=== PATIENT | female | born 1945 | race Caucasian/White ===

== ENCOUNTER 2018-12-26 14:36 | Inpatient (IN) | payer MEDICARE, MEDICAID ==
[~2018-12-26] VITALS: Ht 162.6 cm; Wt 81.8 kg
[2018-12-26] VITALS (10 sets, daily range): BP systolic 141–166; BP diastolic 76–129
--- OUTSIDE RECORDS SUMMARY | 2018-12-26 15:09 | XMS REPORT | Continuity of Care Document ---
Author Organization Unknown Address Unknown Allergies There is no data. Medications There is no data. Problems There is no data. Procedures There is no data. Results Test Result Range LIPID PANEL - 11/30/18 15:24 CHOLESTEROL, TOTAL 230 mg/dL <200 HDL CHOLESTEROL 43 mg/dL >50 TRIGLYCERIDES 196 mg/dL <150 LDL-CHOLESTEROL 153 mg/dL (calc) NRG CHOL/HDLC RATIO 5.3 (calc) <5.0 NON HDL CHOLESTEROL 187 mg/dL (calc) <130 CMP - 11/30/18 15:24 GLUCOSE 83 mg/dL 65-99 UREA NITROGEN (BUN) 13 mg/dL 7-25 CREATININE 1.23 mg/dL 0.60-0.93 eGFR NON-AFR. AUSTRALIAN 44 mL/min/1.73m2 > OR=60 eGFR 51 mL/min/1.73m2 > OR=60 BUN/CREATININE RATIO 11 (calc) 6-22 SODIUM 141 mmol/L 135-146 POTASSIUM 4.4 mmol/L 3.5-5.3 CHLORIDE 107 mmol/L 98-110 CARBON DIOXIDE 24 mmol/L 20-32 CALCIUM 9.9 mg/dL 8.6-10.4 PROTEIN, TOTAL 7.3 g/dL 6.1-8.1 ALBUMIN 4.1 g/dL 3.6-5.1 GLOBULIN 3.2 g/dL (calc) 1.9-3.7 ALBUMIN/GLOBULIN RATIO 1.3 (calc) 1.0-2.5 BILIRUBIN, TOTAL 0.7 mg/dL 0.2-1.2 ALKALINE PHOSPHATASE 113 U/L 33-130 AST 24 U/L 10-35 ALT 12 U/L 6-29 TSH - 11/30/18 15:24 TSH 14.20 mIU/L 0.40-4.50 Encounters ACCT No. Visit Date/Time Discharge Status Pt. Type Provider Facility Loc./Unit Complaint [id number] 11/30/2018 14:30:00 11/30/2018 23:59:59 CLS Outpatient MEHNAZ ROMAN LAC [facility] [id number] 11/30/2018 14:30:00 Document Registration
[2018-12-26] MEDS ORDERED: RT-ALBUTEROL/IPRATROPIUM 3 ML (DUONEB) VIAL INH ONE (15:15)
[2018-12-26 15:34] LABS: INR 1.3 (0.8-1.4)
[2018-12-26 15:38] LABS: BASOPHILS % (AUTO) 1 % (0-10); EOSINOPHILS % (AUTO) 2 % (0-10); HEMATOCRIT 40 % (35-52); HEMOGLOBIN 12.7 G/DL (11.5-16.0); LYMPHOCYTES % (AUTO) 24 % (12-44); MEAN CORPUSCULAR HEMOGLOBIN 29 PG (25-34); MEAN CORPUSCULAR HGB CONC 32 G/DL (32-36); MEAN CORPUSCULAR VOLUME 92 FL (80-99); MEAN PLATELET VOLUME 12.1 FL (7.4-10.4); MONOCYTES % (AUTO) 27 % (0-12); NEUTROPHILS # (AUTO) 2.3 X 10^3 (1.8-7.8); NEUTROPHILS % (AUTO) 46 % (42-75); PLATELET COUNT 151 10^3/uL (130-400); RED CELL DISTRIBUTION WIDTH 16.2 % (10.0-14.5)
[2018-12-26 15:39] LABS: ATYPICAL LYMPHOCYTES 1 %; BAND NEUTROPHILS 19 %; BASOPHILS # (AUTO) 0.1 10^3/uL (0.0-0.1); BASOPHILS % (MANUAL) 2 %; EOSINOPHILS # (AUTO) 0.1 10^3/uL (0.0-0.3); EOSINOPHILS % (MANUAL) 1 %; LYMPHOCYTES # (AUTO) 1.2 X 10^3 (1.0-4.0); LYMPHOCYTES % (MANUAL) 24 %; MONOCYTES # (AUTO) 1.3 X 10^3 (0.0-1.0); MONOCYTES % (MANUAL) 23 %; NEUTROPHILS % (MANUAL) 30 %
[2018-12-26 15:40] LABS: RBC MORPH NORMAL
[2018-12-26 15:48] LABS: CALCIUM 9.1 MG/DL (8.5-10.1); CREATININE SERUM 1.25 MG/DL (0.60-1.30); POTASSIUM 3.4 MMOL/L (3.6-5.0)
--- NOTE | 2018-12-26 16:03 | Diagnostic Imaging Report ---
INDICATION: Cough. EXAMINATION: PA and lateral views of the chest at 3:03 p.m. COMPARISON: There no prior studies available for comparison. FINDINGS: There is cardiomegaly. The central pulmonary vascularity is somewhat prominent but there is no evidence for overt failure. However, there is a vague area of slight increased density in the right lung base. This finding is suspicious for mild pneumonia/atelectasis. There is also blunting of the left costophrenic angle. This could be related to a small amount of fluid. The upper lungs are generally clear. The mediastinum is not widened. The osseous structures are intact. IMPRESSION: 1. There is a question of mild pneumonia/atelectasis involving the right lung base. There may also be a small amount of fluid in the left lung base. Clinical followup is recommended. 2. There is cardiomegaly. Dictated by: Dictated on workstation # [id number]
[2018-12-26] MEDS ORDERED: LEVOFLOXACIN 750 MG/150 ML IV 150 ML IV ONE (16:15)
[2018-12-26] MEDS ORDERED: methylPREDNISolone 40 MG/ML (Solu-MEDROL) VIAL IV ONE (16:15)
[2018-12-26] MEDS ORDERED: FUROSEMIDE 40 MG/4 ML INJ (LASIX) IVP ONE (16:15)
--- NOTE | 2018-12-26 16:35 | ED Respiratory ---
General Chief Complaint: Respiratory Problems Stated Complaint: SOB,COUGH Nursing Triage Note: PATIENT C/O SHORTNESS OF BREATH AND COUGH. STATES THAT IT STARTED SEVERAL WEEKS AGO BUT HAS GOTTEN PROGRESSIVELY WORSE OVER THE PAST 2 DAYS. Source: patient, family Exam Limitations: no limitations History of Present Illness Date Seen by Provider: December 26, 2018 Time Seen by Provider: 15:00 Initial Comments This is a 73 y/o f who presents to the ED for evaluation for progressive dyspnea over the past 2-3 days. Reports history of CHF, not on daily lasix but takes lasix 40mg QD PRN. Denies any significant LE edema. Does not weigh daily. Also reports history of COPD. Last steroid course approx 1 year ago. Poor compliance with home inhalers. + cough. no chest pain. no nausea, no vomiting. Activity severely limited 2/2 dyspnea. Allergies and Home Medications Allergies Coded Allergies: latex (Verified Allergy, Unknown, 12/26/18) Uncoded Allergies: SULFA (Allergy, Unknown, 12/26/18) Patient Home Medication List Home Medication List Reviewed: Yes Review of Systems Review of Systems Constitutional: chills; No fever; weakness EENTM: No ear pain, No throat pain, No throat swelling Respiratory: cough, dyspnea on exertion; No orthopnea; short of breath, wheezing Cardiovascular: No chest pain, No edema, No Hx of Intervention, No palpitations, No syncope Gastrointestinal: No abdominal pain, No nausea, No vomiting Genitourinary: No dysuria, No frequency Musculoskeletal: No back pain, No joint pain Skin: No pruritus, No rash All Other Systems Reviewed Negative Unless Noted: Yes Past Xllhrtd-Ykqgvl-Vwwvqz Hx Patient Social History Recent Foreign Travel: No Contact w/Someone Who Travel: No Recent Infectious Disease Expo: No Physical Abuse: No Sexual Abuse: No Mistreated: No Fear: No Physical Exam Vital Signs - First Documented 12/26/18 14:45 Temp 98.4 Pulse 92 Resp 28 B/P (MAP) 191/70 (110) Pulse Ox 96 O2 Delivery Room Air Capillary Refill : Less Than 3 Seconds Height: 5'4.00" Weight: 174lbs. oz. 78.221075dw; BMI Method:Stated General Appearance: WD/WN, mild distress Eyes: Bilateral Eye PERRL HEENT: PERRL/EOMI, pharynx normal Neck: full range of motion, normal inspection Respiratory: chest non-tender, decreased breath sounds, accessory muscle use, rales, rhonchi, wheezing Cardiovascular: no edema, no JVD, irregularly irregular Gastrointestinal: normal bowel sounds, non tender, soft Extremities: normal range of motion, no pedal edema Neurologic/Psychiatric: no motor/sensory deficits, alert, normal mood/affect, oriented x 3 Skin: normal color, warm/dry Progress/Results/Core Measures Suspected Sepsis Recent Fever Within 48 Hours: No Infection Criteria Present: Suspected New Infection New/Unexplained Altered Menta: No Sepsis Screen: Possible Sepsis Risk SIRS Temperature:98.4 Pulse: 92 Respiratory Rate: 28 Laboratory Tests 12/26/18 15:12: White Blood Count 5.0 Blood Pressure 191 /70 Mean: 110 Laboratory Tests 12/26/18 15:12: Creatinine 1.25, INR Comment 1.3, Platelet Count 151 Results/Orders Lab Results Laboratory Tests Test 12/26/18 15:12 Range/Units White Blood Count 5.0 4.3-11.0 10^3/uL Red Blood Count 4.32 L 4.35-5.85 10^6/uL Hemoglobin 12.7 11.5-16.0 G/DL Hematocrit 40 35-52 % Mean Corpuscular Volume 92 80-99 FL Mean Corpuscular Hemoglobin 29 25-34 PG Mean Corpuscular Hemoglobin Concent 32 32-36 G/DL Red Cell Distribution Width 16.2 H 10.0-14.5 % Platelet Count 151 130-400 10^3/uL Mean Platelet Volume 12.1 H 7.4-10.4 FL Neutrophils (%) (Auto) 46 42-75 % Lymphocytes (%) (Auto) 24 12-44 % Monocytes (%) (Auto) 27 H 0-12 % Eosinophils (%) (Auto) 2 0-10 % Basophils (%) (Auto) 1 0-10 % Neutrophils # (Auto) 2.3 1.8-7.8 X 10^3 Lymphocytes # (Auto) 1.2 1.0-4.0 X 10^3 Monocytes # (Auto) 1.3 H 0.0-1.0 X 10^3 Eosinophils # (Auto) 0.1 0.0-0.3 10^3/uL Basophils # (Auto) 0.1 0.0-0.1 10^3/uL Neutrophils % (Manual) 30 % Lymphocytes % (Manual) 24 % Monocytes % (Manual) 23 % Eosinophils % (Manual) 1 % Basophils % (Manual) 2 % Band Neutrophils 19 % Atypical Lymphocytes 1 % Blood Morphology Comment NORMAL Prothrombin Time 17.0 H 12.2-14.7 SEC INR Comment 1.3 0.8-1.4 Activated Partial Thromboplast Time 72 H 24-35 SEC Sodium Level 142 135-145 MMOL/L Potassium Level 3.4 L 3.6-5.0 MMOL/L Chloride Level 104 98-107 MMOL/L Carbon Dioxide Level 22 21-32 MMOL/L Anion Gap 16 H 5-14 MMOL/L Blood Urea Nitrogen 15 7-18 MG/DL Creatinine 1.25 0.60-1.30 MG/DL Estimat Glomerular Filtration Rate 42 BUN/Creatinine Ratio 12 Glucose Level 128 H 70-105 MG/DL Calcium Level 9.1 8.5-10.1 MG/DL Troponin T 6 <=10 NG/L Pro-B-Type Natriuretic Peptide 1323.0 H <75.0 PG/ML My Orders Orders - KEKE YOUNG DO Basic Metabolic Panel (12/26/18 14:55) Cbc And Manual Diff (12/26/18 14:55) Partial Thromboplastin Time (12/26/18 14:55) Probnp Fs (12/26/18 14:55) Protime With Inr (12/26/18 14:55) Troponin T (12/26/18 14:55) Chest Pa/Lat (2 View) (12/26/18 14:55) Ekg Tracing (12/26/18 14:55) Albuterol/Ipra Inhalation Soln (Duoneb I (12/26/18 15:15) Svn Small Volume Nebulizer (12/26/18 15:03) Furosemide Injection (Lasix Injection) (12/26/18 16:15) Methylprednisolone Sod Succ (Solu-Medrol (12/26/18 16:15) Levofloxacin 750 Mg/150 Ml Iv (Levaquin (12/26/18 16:15) Blood Culture (12/26/18 16:24) Blood Culture (12/26/18 16:25) Medications Given in ED Current Medications Medications Dose Ordered Sig/Pb Route Start Time Stop Time Status Last Admin Dose Admin Albuterol/ Ipratropium 3 ml ONCE ONCE INH 12/26/18 15:15 12/26/18 15:16 DC 12/26/18 15:34 3 ML Furosemide 40 mg ONCE ONCE IVP 12/26/18 16:15 12/26/18 16:16 DC 12/26/18 16:31 40 MG Methylprednisolone Sodium Succinate 60 mg ONCE ONCE IV 12/26/18 16:15 12/26/18 16:16 DC 12/26/18 16:31 60 MG Vital Signs/I&O 12/26/18 14:45 Temp 98.4 Pulse 92 Resp 28 B/P (MAP) 191/70 (110) Pulse Ox 96 O2 Delivery Room Air Capillary Refill : Less Than 3 Seconds Blood Pressure Mean: 110 Progress Note : Progress Note 1600: No significant improvement after breathing tx. EKG with no aute findings (a-fib which she has a history of) has remained Rate controlled. CXR with ?early infiltrate. Suspect multifactorial cause of dyspnea including COPD exacerbation, CHF exacerbation with pleural effusion on CXR and early infiltrate. Given lasix 40mg IV, Solu-medrol 60 and Levaquin in ED. Discussed with Dr. Suarez, admitting physician at [facility] who is agreeable to admission. Transportation being arranged. Diagnostic Imaging Comments CXR IMPRESSION: 1. There is a question of mild pneumonia/atelectasis involving the right lung base. There may also be a small amount of fluid in the left lung base. Clinical followup is recommended. 2. There is marked cardiomegaly. Consults Consults : Consulting Physician: A Departure Impression Primary Impression: Dyspnea Additional Impressions: CHF exacerbation COPD exacerbation Community acquired bacterial pneumonia Disposition: ADMITTED INPATIENT Condition: Improved Admissions Decision to Admit Reason: Admit from ER (General) Decision to Admit/Date: December 26, 2018 Time/Decision to Admit Time: 16:00 Departure-Patient Inst. Referrals: SELF,SADE PARKER (PCP/Family) Primary Care Physician KEKE YOUNG DO December 26, 2018 16:35
--- OUTSIDE RECORDS SUMMARY | 2018-12-26 16:58 | XMS REPORT | Continuity of Care Document ---
[...] 7-25 CREATININE 1.23 mg/dL 0.60-0.93 eGFR NON-AFR. [place] 44 mL/min/1.73m2 > OR=60 eGFR 51 mL/min/1.73m2 [...] Status Pt. Type Provider Facility Loc./Unit Complaint [id number] 11/30/2018 14:30:00 11/30/2018 23:59:59 CLS Outpatient ME[facility]NAZ ROMAN LAC [facility] [id number] 11/30/2018 14:30:00 Document Registration
[2018-12-26] MEDS ORDERED: RT-ALBUTEROL SULF 2.5 MG/3 ML PRE-MIX VIAL IH PRN (20:15)
--- NOTE | 2018-12-26 21:16 | NUR ---
E-ICU contacted r/t increased heart rate on exertion (130-160), and baseline heart rate of 110 when in bed.
--- NOTE | 2018-12-26 21:29 | NUR ---
E-HAND I BLOCKER contacted this RN, notified that physician recommended strict bedrest for pt and continued monitoring.
[2018-12-27] VITALS (24 sets, daily range): BP systolic 134–177; BP diastolic 59–104
--- NOTE | 2018-12-27 02:03 | NUR ---
Pt c/o headache, rating pain 7/10, requesting Tylenol, E-ICU contacted at this time, awaiting orders.
[2018-12-27] MEDS ORDERED: ACETAMINOPHEN 325 MG TABLET ONE (02:26)
[2018-12-27] MEDS ORDERED: ACETAMINOPHEN 325 MG TABLET PO PRN (02:30)
[2018-12-27 03:13] LABS: BASOPHILS % (AUTO) 1 % (0-10); EOSINOPHILS % (AUTO) 0 % (0-10); HEMATOCRIT 42 % (35-52); HEMOGLOBIN 13.8 G/DL (11.5-16.0); LYMPHOCYTES # (AUTO) 0.6 X 10^3 (1.0-4.0); LYMPHOCYTES % (AUTO) 17 % (12-44); MEAN CORPUSCULAR HEMOGLOBIN 29 PG (25-34); MEAN CORPUSCULAR HGB CONC 33 G/DL (32-36); MEAN CORPUSCULAR VOLUME 88 FL (80-99); MEAN PLATELET VOLUME 12.9 FL (7.4-10.4); MONOCYTES # (AUTO) 0.4 X 10^3 (0.0-1.0); MONOCYTES % (AUTO) 11 % (0-12); NEUTROPHILS # (AUTO) 2.6 X 10^3 (1.8-7.8); NEUTROPHILS % (AUTO) 72 % (42-75); PLATELET COUNT 165 10^3/uL (130-400); RED CELL DISTRIBUTION WIDTH 16.5 % (10.0-14.5); WHITE BLOOD COUNT 3.7 10^3/uL (4.3-11.0)
[2018-12-27 03:35] LABS: BILIRUBIN,TOTAL 0.6 MG/DL (0.1-1.0); CALCIUM 10.1 MG/DL (8.5-10.1); CREATININE SERUM 1.28 MG/DL (0.60-1.30); MAGNESIUM 1.7 MG/DL (1.8-2.4); PHOSPHORUS 2.4 MG/DL (2.3-4.7); POTASSIUM 3.4 MMOL/L (3.6-5.0); TOTAL PROTEIN 7.7 GM/DL (6.4-8.2)
[2018-12-27] MEDS: MAGNESIUM 1 GM/100 ML IVPB 100 ML IV SCH ×2 (05:30→06:33)
[2018-12-27] MEDS: POTASSIUM CL 10MEQ/50ML IVPB 50 ML IV SCH ×2 (05:30→06:32)
[2018-12-27] MEDS ORDERED: MAGNESIUM 1 GM/100 ML IVPB 100 ML IV SCH (06:00)
[2018-12-27] MEDS ORDERED: KCL 20 MEQ TAB (K-DUR) PO SCH (06:00)
[2018-12-27] MEDS ORDERED: POTASSIUM CL 10MEQ/50ML IVPB 50 ML IV SCH (06:00)
--- NOTE | 2018-12-27 06:00 | Pulmonary Consultation ---
History of Present Illness History of Present Illness Date of Consultation 12/27/18 05:55 Time Seen by Provider: 05:55 Date of Admission History of Present Illness 73yo with hx of CHF, Afib, and COPD (does not have home oxygen presented to ED secondary to worsening SOB, no CP, No coughing or fever. Pt has poor compliance wit home INH. Allergies and Home Medications Allergies Coded Allergies: latex (Verified Allergy, Unknown, 12/26/18) Uncoded Allergies: SULFA (Allergy, Unknown, 12/26/18) Past Hlgwcfo-Rhzxwl-Uolpoi Hx Patient Social History Alcohol Use: Denies Use Recreational Drug Use: No Smoking Status: Never a Smoker 2nd Hand Smoke Exposure: No Recent Foreign Travel: No Contact w/Someone Who Travel: No Recent Infectious Disease Expo: No Physical Abuse: No Sexual Abuse: No Mistreated: No Fear: No Immunizations Up To Date Tetanus Booster (TDap): Unknown Date of Pneumonia Vaccine: May 03, 2018 Past Medical History Section, Orthopedic Respiratory: Yes COPD Cardiac: Yes (CARDIOMEGALY) Atrial Fibrillation Genitourinary: No Gastrointestinal: No Musculoskeletal: No Endocrine: Yes Hypothyroidsim HEENT: No Cancer: No Psychosocial: No Integumentary: No Blood Disorders: No Sepsis Event Evaluation Height, Weight, BMI Height: 5'4.00" Weight: 171lbs. 2.0oz. 77.065774gz; 29.4 BMI Method:Stated Exam Exam Vital Signs Date Time Temp Pulse Resp B/P (MAP) Pulse Ox O2 Delivery O2 Flow Rate FiO2 12/27/18 05:00 105 25 168/96 (120) 96 Room Air 12/27/18 04:00 Room Air 12/27/18 04:00 100 20 139/71 (93) 93 Room Air 12/27/18 03:00 93 26 157/61 (93) 93 Room Air 12/27/18 02:00 101 22 155/78 (103) 95 Room Air 12/27/18 01:00 112 12/27/18 01:00 112 24 158/81 (106) 95 Room Air 12/27/18 00:43 97.2 12/27/18 00:00 Room Air 12/27/18 00:00 111 26 160/66 (97) 96 Room Air 12/26/18 23:00 109 23 152/89 (110) 95 Room Air 12/26/18 22:00 114 29 145/83 (103) 96 Room Air 12/26/18 21:00 121 27 152/82 (105) 96 Room Air 12/26/18 20:15 140 97 21 12/26/18 20:15 118 25 153/91 (111) 95 Room Air 12/26/18 20:00 96 Room Air 12/26/18 20:00 133 18 160/84 (109) 97 Room Air 12/26/18 19:45 131 16 144/82 (102) 95 Room Air 12/26/18 19:30 137 30 166/129 (141) 96 Room Air 12/26/18 19:15 117 26 158/96 (116) 95 Room Air 12/26/18 19:00 115 12/26/18 19:00 115 10 155/93 (113) 94 Room Air 12/26/18 19:00 Room Air 12/26/18 18:35 96.8 119 36 141/76 (97) 95 Room Air 12/26/18 17:50 99.1 97 24 195/62 (106) 94 Room Air 12/26/18 14:45 98.4 92 28 191/70 (110) 96 Room Air I & O 12/27/18 07:00 Intake Total 450 ml Output Total 2225 ml Balance -1775 ml Height & Weight Height: 5'4.00" Weight: 171lbs. 2.0oz. 77.877786tk; 29.4 BMI Method:Stated General Appearance: Anxious, Chronically ill, Mild Distress HEENT: PERRL/EOMI, Normal ENT Inspection, Pharynx Normal Neck: Full Range of Motion, Non Tender, Supple Respiratory: Chest Non Tender, No Accessory Muscle Use, No Respiratory Distress, Decreased Breath Sounds Cardiovascular: Regular Rate, Rhythm Capillary Refill: Less Than 3 Seconds Gastrointestinal: normal bowel sounds, non tender, soft Extremity: Normal Capillary Refill, Normal Inspection, No Pedal Edema Neurologic/Psychiatric: Alert, Oriented x3 Skin: Normal Color, Warm/Dry Lymphatic: No Adenopathy Results Lab Laboratory Tests 12/26/18 15:12 12/27/18 02:51 Assessment/Plan Assessment/Plan COPD AE -SVNs -Oxygen -Solumedrol CHFAE -Lasix -Check echo -Repeat BNP tachycardia with HTN -Start Lopressor PO Metabolic acidosis -Check LA and UA Atelectasis AGUTSO HERRERA DO December 27, 2018 06:00
[2018-12-27] MEDS: RT-ALBUTEROL/IPRATROPIUM 3 ML (DUONEB) VIAL INH SCH ×4 (06:26→20:03)
[2018-12-27 06:42] LABS: ABG BASE EXCESS -2.5 MMOL/L (-2.5-2.5); ABG OXYGEN SATURATION 95 % (94-100); ABG PCO2 30 MMHG (35-45); ABG PH 7.45 (7.37-7.43); ABG PO2 67 MMHG (79-93); ABG TCO2 22.1 MMOL/L (21.0-31.0)
[2018-12-27 06:43] LABS: ALLENS TEST POSITIVE; INSPIRED O2 N; PATIENT TEMP 96.4; VENTILATOR NO
[2018-12-27] MEDS ORDERED: KCL 20 MEQ TAB (K-DUR) PO ONE (08:00)
[2018-12-27] MEDS ORDERED: FUROSEMIDE 40 MG/4 ML INJ (LASIX) IVP ONE (08:00)
[2018-12-27 08:04] LABS: BILIRUBIN,URINE NEGATIVE (NEGATIVE); CLARITY,URINE SLIGHTLY CLOUDY; COLOR,URINE YELLOW; GLUCOSE, URINE (UA) NEGATIVE (NEGATIVE); KETONES,URINE NEGATIVE (NEGATIVE); LEUKOCYTE ESTERASE ,URINE 1+ (NEGATIVE); NITRITE,URINE NEGATIVE (NEGATIVE); PH,URINE 5 (5-9); PROTEIN,URINE 2+ (NEGATIVE); UROBILINOGEN,URINE NORMAL (NORMAL)
[2018-12-27 08:13] LABS: BACTERIA,URINE NEGATIVE /HPF
[2018-12-27] MEDS ORDERED: meTOprolol TARTRATE 25 MG (LOPRESSOR) TABLET PO SCH (09:00)
--- NOTE | 2018-12-27 09:20 | Diagnostic Imaging Report ---
Portable erect AP chest at 315 hours. INDICATION: Pneumonia. FINDINGS: The cardiomegaly noted on the prior exam of 12/26/2018 is again evident. However, both the heart and the central pulmonary vascularity are somewhat less striking than on the prior study. The previous exam did raise the question of mild pneumonia involving the right lung base. The right lung base also appears better aerated. There is still mild blunting of left costophrenic angle. The upper lungs are clear. The mediastinum is not widened. The osseous structures are intact. IMPRESSION: The appearance of the chest has improved as the heart has decreased in size and the central pulmonary vascularity does seem less prominent. The right lung base is also better aerated. Clinical followup is recommended. Dictated by: Dictated on workstation # [id number]
[2018-12-27] MEDS ORDERED: METO50TA15 PO (10:22)
[2018-12-27] MEDS ORDERED: LISI-552 PO (10:22)
[2018-12-27] MEDS ORDERED: LEVO100T7 PO (10:22)
[2018-12-27] MEDS ORDERED: DABI75CA3 PO (10:22)
[2018-12-27] MEDS ORDERED: meTOprolol TARTRATE 25 MG (LOPRESSOR) TABLET PO NR (11:15)
--- NOTE | 2018-12-27 11:30 | NUR ---
Levaquin Dosing: Utilizing patient adjusted body weight, Crcl calculated at 40ml/min. Recommended dose adjustment to 750mg every 48 hours. Initial dose administered 12/26 @ 1635. Subsequent dose will be timed for 12/28 @ 1700, 2nd IVPB dose, then will convert to oral Levaquin.
--- NOTE | 2018-12-27 11:53 | History & Physicial ([facility]) ---
HPI History of Present Illness: 73 yo female started to have cough a few days ago and was getting worse so she came to ER. She did not have known fever. She does report an "enlarged heart" and taking lasix as needed- she takes when she is getting swollen and reports this amounts to once every few months. She denies coronary artery disease, states she had rheumatic fever as a child. She has atrial fibrillation and is on Pradaxa and metoprolol. This morning she is feeling much better already. Source: patient Date seen by provider: December 27, 2018 Time Seen by Provider: 09:35 Attending Physician Xavier Munoz MD PCP Self,Rl PARKER Consult Date of Admission December 26, 2018 at 16:53 Home Medications Home Medications Reviewed patient Home Medication Reconciliation performed by pharmacy medication reconciliations diamond powder technician and/or nursing. Patients Allergies have been reviewed. Allergies Coded Allergies: latex (Verified Allergy, Unknown, 12/26/18) Uncoded Allergies: SULFA (Allergy, Unknown, 12/26/18) KAP-Bgmrgk-Fypdej Hx Patient Social History Alcohol Use: Denies Use Recreational Drug Use: No Smoking Status: Never a Smoker 2nd Hand Smoke Exposure: No Recent Foreign Travel: No Contact w/other who traveled: No Recent Infectious Disease Expo: No Immunizations Up To Date Tetanus Booster (TDap): Unknown Date of Pneumonia Vaccine: May 03, 2018 Past Medical History PMHx: Heart failure Atrial fibrillation Arthritis HTN COPD Hypothyroidism SurgHx: C section Left knee surgery Review of Systems ([facility]) Constitutional: No fever EENTM: no symptoms reported Respiratory: cough, short of breath Cardiovascular: No chest pain Gastrointestinal: No abdominal pain, No constipation, No diarrhea, No nausea, No vomiting Genitourinary: No dysuria Musculoskeletal: joint pain Skin: No rash Psychiatric/Neurological: No Symptoms Reported Reviewed Test Results Reviewed Test Results Lab Laboratory Tests Test 12/26/18 15:12 12/27/18 02:51 12/27/18 06:21 12/27/18 06:30 Range/Units White Blood Count 5.0 3.7 L 4.3-11.0 10^3/uL Red Blood Count 4.32 L 4.73 4.35-5.85 10^6/uL Hemoglobin 12.7 13.8 11.5-16.0 G/DL Hematocrit 40 42 35-52 % Mean Corpuscular Volume 92 88 80-99 FL Mean Corpuscular Hemoglobin 29 29 25-34 PG Mean Corpuscular Hemoglobin Concent 32 33 32-36 G/DL Red Cell Distribution Width 16.2 H 16.5 H 10.0-14.5 % Platelet Count 151 165 130-400 10^3/uL Mean Platelet Volume 12.1 H 12.9 H 7.4-10.4 FL Neutrophils (%) (Auto) 46 72 42-75 % Lymphocytes (%) (Auto) 24 17 12-44 % Monocytes (%) (Auto) 27 H 11 0-12 % Eosinophils (%) (Auto) 2 0 0-10 % Basophils (%) (Auto) 1 1 0-10 % Neutrophils # (Auto) 2.3 2.6 1.8-7.8 X 10^3 Lymphocytes # (Auto) 1.2 0.6 L 1.0-4.0 X 10^3 Monocytes # (Auto) 1.3 H 0.4 0.0-1.0 X 10^3 Eosinophils # (Auto) 0.1 0.0 0.0-0.3 10^3/uL Basophils # (Auto) 0.1 0.0 0.0-0.1 10^3/uL Neutrophils % (Manual) 30 % Lymphocytes % (Manual) 24 % Monocytes % (Manual) 23 % Eosinophils % (Manual) 1 % Basophils % (Manual) 2 % Band Neutrophils 19 % Atypical Lymphocytes 1 % Blood Morphology Comment NORMAL Prothrombin Time 17.0 H 12.2-14.7 SEC INR Comment 1.3 0.8-1.4 Activated Partial Thromboplast Time 72 H 24-35 SEC Sodium Level 142 139 135-145 MMOL/L Potassium Level 3.4 L 3.4 L 3.6-5.0 MMOL/L Chloride Level 104 104 98-107 MMOL/L Carbon Dioxide Level 22 20 L 21-32 MMOL/L Anion Gap 16 H 15 H 5-14 MMOL/L Blood Urea Nitrogen 15 18 7-18 MG/DL Creatinine 1.25 1.28 0.60-1.30 MG/DL Estimat Glomerular Filtration Rate 42 41 BUN/Creatinine Ratio 12 14 Glucose Level 128 H 189 H 70-105 MG/DL Calcium Level 9.1 10.1 8.5-10.1 MG/DL Troponin T 6 <=10 NG/L Pro-B-Type Natriuretic Peptide 1323.0 H <75.0 PG/ML Corrected Calcium 10.1 8.5-10.1 MG/DL Phosphorus Level 2.4 2.3-4.7 MG/DL Magnesium Level 1.7 L 1.8-2.4 MG/DL Total Bilirubin 0.6 0.1-1.0 MG/DL Aspartate Amino Transf (AST/SGOT) 24 5-34 U/L Alanine Aminotransferase (ALT/SGPT) 13 0-55 U/L Alkaline Phosphatase 152 H 40-136 U/L Total Protein 7.7 6.4-8.2 GM/DL Albumin 4.0 3.2-4.5 GM/DL Lactic Acid Level 1.33 0.50-2.00 MMOL/L Troponin I < 0.028 <0.028 NG/ML B-Type Natriuretic Peptide 165.8 H <100.0 PG/ML Blood Gas Puncture Site LEFT RADIAL Blood Gas Patient Temperature 96.4 Arterial Blood pH 7.45 H 7.37-7.43 Arterial Blood Partial Pressure CO2 30 L 35-45 MMHG Arterial Blood Partial Pressure O2 67 L 79-93 MMHG Arterial Blood HCO3 21 L 23-27 MMOL/L Arterial Blood Total CO2 22.1 21.0-31.0 MMOL/L Arterial Blood Oxygen Saturation 95 94-100 % Arterial Blood Base Excess -2.5 -2.5-2.5 MMOL/L Bossman Test POSITIVE Blood Gas Ventilator Setting NO Blood Gas Inspired Oxygen N Test 12/27/18 07:30 Range/Units Urine Color YELLOW Urine Clarity SLIGHTLY CLOUDY Urine pH 5 5-9 Urine Specific [place] 1.015 L 1.016-1.022 Urine Protein 2+ H NEGATIVE Urine Glucose (UA) NEGATIVE NEGATIVE Urine Ketones NEGATIVE NEGATIVE Urine Nitrite NEGATIVE NEGATIVE Urine Bilirubin NEGATIVE NEGATIVE Urine Urobilinogen NORMAL NORMAL MG/DL Urine Leukocyte Esterase 1+ H NEGATIVE Urine RBC (Auto) 5+ H NEGATIVE Urine RBC 10-25 H /HPF Urine WBC 5-10 H /HPF Urine Squamous Epithelial Cells 2-5 /HPF Urine Crystals NONE /LPF Urine Bacteria NEGATIVE /HPF Urine Casts PRESENT /LPF Urine Hyaline Casts 10-25 H /LPF Urine Mucus NEGATIVE /LPF Urine Culture Indicated YES Radiology CXR with question of right base pneumonia, fluid in left base Physical Exam-([facility]) Physical Exam Vital Signs VS - Last 72 Hours, by Label 12/26/18 12/26/18 12/26/18 12/26/18 14:45 17:50 18:35 19:00 Temp 98.4 99.1 96.8 Pulse 92 97 119 Resp 24 36 B/P (MAP) 191/70 (110) 195/62 (106) 141/76 (97) Pulse Ox 96 94 95 O2 Delivery Room Air Room Air Room Air Room Air 12/26/18 12/26/18 12/26/18 12/26/18 19:00 19:00 19:15 19:30 Pulse 115 115 117 137 Resp 05 28 30 B/P (MAP) 155/93 (113) 158/96 (116) 166/129 (141) Pulse Ox 94 95 96 O2 Delivery Room Air Room Air Room Air 12/26/18 12/26/18 12/26/18 12/26/18 19:45 20:00 20:00 20:15 Pulse 131 133 118 Resp 16 18 25 B/P (MAP) 144/82 (102) 160/84 (109) 153/91 (111) Pulse Ox 95 97 96 95 O2 Delivery Room Air Room Air Room Air Room Air 12/26/18 12/26/18 12/26/18 12/26/18 20:15 21:00 22:00 23:00 Pulse 140 121 114 109 Resp 23 B/P (MAP) 152/82 (105) 145/83 (103) 152/89 (110) Pulse Ox 97 96 96 95 O2 Delivery Room Air Room Air Room Air FiO2 21 12/27/18 12/27/18 12/27/18 12/27/18 00:00 00:00 00:43 01:00 Temp 97.2 Pulse 111 112 Resp 24 B/P (MAP) 160/66 (97) 158/81 (106) Pulse Ox 96 95 O2 Delivery Room Air Room Air Room Air 12/27/18 12/27/18 12/27/18 12/27/18 01:00 02:00 03:00 04:00 Pulse 112 101 93 100 Resp 22 20 B/P (MAP) 155/78 (103) 157/61 (93) 139/71 (93) Pulse Ox 95 93 93 O2 Delivery Room Air Room Air Room Air 12/27/18 12/27/18 12/27/18 12/27/18 04:00 05:00 06:00 06:38 Pulse 105 110 Resp 25 21 B/P (MAP) 168/96 (120) 157/69 (98) Pulse Ox 96 93 96 O2 Delivery Room Air Room Air Room Air Room Air 12/27/18 12/27/18 12/27/18 12/27/18 07:00 07:35 07:41 08:00 Temp 97.2 Pulse 112 137 120 Resp 25 23 B/P (MAP) 174/82 (112) 177/59 (98) Pulse Ox 95 95 97 O2 Delivery Room Air Room Air Room Air 12/27/18 12/27/18 12/27/18 12/27/18 09:00 10:00 11:00 11:29 Pulse 121 105 92 Resp 21 20 26 B/P (MAP) 170/71 (104) 156/59 (91) 152/78 (102) Pulse Ox 99 97 95 96 O2 Delivery Room Air Room Air Room Air Room Air 12/27/18 12/27/18 12/27/18 12/27/18 12:00 12:00 12:46 12:49 Temp 98.4 Pulse 129 96 114 Resp 22 B/P (MAP) 173/62 (99) Pulse Ox 99 O2 Delivery Room Air 12/27/18 12/27/18 13:00 14:00 Pulse 100 93 Resp 21 24 B/P (MAP) 166/80 (108) 150/72 (98) Pulse Ox 97 97 O2 Delivery Room Air Room Air Capillary Refill : Less Than 3 Seconds General Appearance: WD/WN, no apparent distress Respiratory: lungs clear, normal breath sounds Cardiovascular: no murmur, tachycardia, irregularly irregular Gastrointestinal: normal bowel sounds, non tender, soft Extremities: no pedal edema Neurologic/Psychiatric: alert, normal mood/affect, oriented x 3 Skin: normal color Assessment/Plan Assessment/Plan Admission Status: Observation (1) Community acquired bacterial pneumonia Status: Acute Assessment & Plan: Without meeting sepsis criteria. On levofloxacin. (2) Hypomagnesemia Status: Acute Assessment & Plan: Replace and follow. (3) Hypokalemia Status: Acute Assessment & Plan: Replace and follow (4) COPD exacerbation Status: Acute Assessment & Plan: SolumedrolJesús. Dr. Leal following. (5) CHF exacerbation Status: Acute Assessment & Plan: Cardiology consulted, appreciate recommendations. Improving BNP and symptomatically with lasix. Echo with EF 55-65% and decreased RV systolic function, dilated RA. (6) Atrial fibrillation Status: Chronic Assessment & Plan: Cardiology following, appreciate recommendations. BP stable. Qualifiers: Qualified Codes: I48.2 - Chronic atrial fibrillation (7) Hypothyroidism Status: Chronic Assessment & Plan: Resume home levothyroxine Qualifiers: Qualified Codes: E03.9 - Hypothyroidism, unspecified (8) Hypertension Status: Chronic Assessment & Plan: Resume home medications. Clinic review lists amlodipine, may need restarted if BP remains high. Qualifiers: Qualified Codes: I10 - Essential (primary) hypertension (9) DVT prophylaxis Status: Acute Assessment & Plan: On Pradaxa. Clinical Quality Measures DVT/VTE Risk/Contraindication: Risk Factor Score Per Nursin RFS Level Per Nursing on Admit: 4+=Very High XAVIER MUNOZ MD December 27, 2018 11:53
--- NOTE | 2018-12-27 12:09 | Consultation-Cardiology ---
HPI-Cardiology Cardiology Consultation Date of Consultation 12/27/18 Date of Admission Time Seen by Provider: 12:05 Indication: atrial fibrillation HPI 73 years old lady with history of paroxysmal atrial fibrillation, COPD and hypertension. Was in her usual state of health when she noted increasing shortness of breath, cough productive of whitish sputum. Denied any fever or ch ills. No chest pain. No syncope or near syncopal episode. She was seen in [place] emergency room and transferred to [place] for admission. Home Medications & Allergies Allergies: Coded Allergies: latex (Verified Allergy, Unknown, 12/26/18) Uncoded Allergies: SULFA (Allergy, Unknown, 12/26/18) Home Medication List Reviewed: Yes IZA-Iiupha-Nfwgnj Hx Patient Social History Marital Status: Employed/Student: retired Alcohol Use: Denies Use Recreational Drug Use: No Smoking Status: Never a Smoker 2nd Hand Smoke Exposure: No Recent Foreign Travel: No Recent Infectious Disease Expo: No Immunizations Up To Date Tetanus Booster (TDap): Unknown Date of Pneumonia Vaccine: May 03, 2018 Past Medical History past medical history as described below Family Medical History Family Medical Hx noncontributory to her current condition Review of Systems-General Review of Systems Constitutional: chills; No fever; malaise, weakness EENTM: No ear pain, No throat pain, No throat swelling Respiratory: cough, dyspnea on exertion; No orthopnea; short of breath, wheezing Cardiovascular: No chest pain, No edema, No Hx of Intervention; palpitations; No syncope Gastrointestinal: no symptoms reported, see HPI; No abdominal pain, No nausea, No vomiting Genitourinary: no symptoms reported, see HPI; No dysuria, No frequency Musculoskeletal: no symptoms reported, see HPI; No back pain, No joint pain Skin: No pruritus, No rash Psychiatric/Neurological: No Symptoms Reported, See HPI All Other Systems Reviewed Negative Unless Noted: Yes Reviewed Test Results Reviewed Test Results Lab Laboratory Tests Test 12/26/18 15:12 12/27/18 02:51 12/27/18 06:21 12/27/18 06:30 Range/Units White Blood Count 5.0 3.7 L 4.3-11.0 10^3/uL Red Blood Count 4.32 L 4.73 4.35-5.85 10^6/uL Hemoglobin 12.7 13.8 11.5-16.0 G/DL Hematocrit 40 42 35-52 % Mean Corpuscular Volume 92 88 80-99 FL Mean Corpuscular Hemoglobin 29 29 25-34 PG Mean Corpuscular Hemoglobin Concent 32 33 32-36 G/DL Red Cell Distribution Width 16.2 H 16.5 H 10.0-14.5 % Platelet Count 151 165 130-400 10^3/uL Mean Platelet Volume 12.1 H 12.9 H 7.4-10.4 FL Neutrophils (%) (Auto) 46 72 42-75 % Lymphocytes (%) (Auto) 24 17 12-44 % Monocytes (%) (Auto) 27 H 11 0-12 % Eosinophils (%) (Auto) 2 0 0-10 % Basophils (%) (Auto) 1 1 0-10 % Neutrophils # (Auto) 2.3 2.6 1.8-7.8 X 10^3 Lymphocytes # (Auto) 1.2 0.6 L 1.0-4.0 X 10^3 Monocytes # (Auto) 1.3 H 0.4 0.0-1.0 X 10^3 Eosinophils # (Auto) 0.1 0.0 0.0-0.3 10^3/uL Basophils # (Auto) 0.1 0.0 0.0-0.1 10^3/uL Neutrophils % (Manual) 30 % Lymphocytes % (Manual) 24 % Monocytes % (Manual) 23 % Eosinophils % (Manual) 1 % Basophils % (Manual) 2 % Band Neutrophils 19 % Atypical Lymphocytes 1 % Blood Morphology Comment NORMAL Prothrombin Time 17.0 H 12.2-14.7 SEC INR Comment 1.3 0.8-1.4 Activated Partial Thromboplast Time 72 H 24-35 SEC Sodium Level 142 139 135-145 MMOL/L Potassium Level 3.4 L 3.4 L 3.6-5.0 MMOL/L Chloride Level 104 104 98-107 MMOL/L Carbon Dioxide Level 22 20 L 21-32 MMOL/L Anion Gap 16 H 15 H 5-14 MMOL/L Blood Urea Nitrogen 15 18 7-18 MG/DL Creatinine 1.25 1.28 0.60-1.30 MG/DL Estimat Glomerular Filtration Rate 42 41 BUN/Creatinine Ratio 12 14 Glucose Level 128 H 189 H 70-105 MG/DL Calcium Level 9.1 10.1 8.5-10.1 MG/DL Troponin T 6 <=10 NG/L Pro-B-Type Natriuretic Peptide 1323.0 H <75.0 PG/ML Corrected Calcium 10.1 8.5-10.1 MG/DL Phosphorus Level 2.4 2.3-4.7 MG/DL Magnesium Level 1.7 L 1.8-2.4 MG/DL Total Bilirubin 0.6 0.1-1.0 MG/DL Aspartate Amino Transf (AST/SGOT) 24 5-34 U/L Alanine Aminotransferase (ALT/SGPT) 13 0-55 U/L Alkaline Phosphatase 152 H 40-136 U/L Total Protein 7.7 6.4-8.2 GM/DL Albumin 4.0 3.2-4.5 GM/DL Lactic Acid Level 1.33 0.50-2.00 MMOL/L Troponin I < 0.028 <0.028 NG/ML B-Type Natriuretic Peptide 165.8 H <100.0 PG/ML Blood Gas Puncture Site LEFT RADIAL Blood Gas Patient Temperature 96.4 Arterial Blood pH 7.45 H 7.37-7.43 Arterial Blood Partial Pressure CO2 30 L 35-45 MMHG Arterial Blood Partial Pressure O2 67 L 79-93 MMHG Arterial Blood HCO3 21 L 23-27 MMOL/L Arterial Blood Total CO2 22.1 21.0-31.0 MMOL/L Arterial Blood Oxygen Saturation 95 94-100 % Arterial Blood Base Excess -2.5 -2.5-2.5 MMOL/L [place] Test POSITIVE Blood Gas Ventilator Setting NO Blood Gas Inspired Oxygen N Test 12/27/18 07:30 Range/Units Urine Color YELLOW Urine Clarity SLIGHTLY CLOUDY Urine pH 5 5-9 Urine Specific [place] 1.015 L 1.016-1.022 Urine Protein 2+ H NEGATIVE Urine Glucose (UA) NEGATIVE NEGATIVE Urine Ketones NEGATIVE NEGATIVE Urine Nitrite NEGATIVE NEGATIVE Urine Bilirubin NEGATIVE NEGATIVE Urine Urobilinogen NORMAL NORMAL MG/DL Urine Leukocyte Esterase 1+ H NEGATIVE Urine RBC (Auto) 5+ H NEGATIVE Urine RBC 10-25 H /HPF Urine WBC 5-10 H /HPF Urine Squamous Epithelial Cells 2-5 /HPF Urine Crystals NONE /LPF Urine Bacteria NEGATIVE /HPF Urine Casts PRESENT /LPF Urine Hyaline Casts 10-25 H /LPF Urine Mucus NEGATIVE /LPF Urine Culture Indicated YES Physical Exam Physical Exam Vital Signs Vital Signs - First Documented 12/26/18 12/26/18 14:45 20:15 Temp 98.4 Pulse 92 Resp 28 B/P (MAP) 191/70 (110) Pulse Ox 96 O2 Delivery Room Air FiO2 21 Capillary Refill : Less Than 3 Seconds Height, Weight, BMI Height: 5'4.00" Weight: 171lbs. 1.0oz. 77.233635qm; 29.4 BMI Method:Stated General Appearance: Anxious, Chronically ill, Mild Distress Eyes: Bilateral Eye PERRL HEENT: PERRL/EOMI, Normal ENT Inspection, Pharynx Normal Neck: Full Range of Motion, Non Tender, Supple Respiratory: Chest Non Tender, No Accessory Muscle Use, No Respiratory Distress, Decreased Breath Sounds Cardiovascular: Systolic Murmur, Gallop/S3, Irregularly Irregular, Tachycardia Extremity: Normal Capillary Refill, Normal Inspection, No Pedal Edema Neurologic/Psychiatric: Alert, Oriented x3 Skin: Normal Color, Warm/Dry Lymphatic: No Adenopathy A/P-Cardiology Admission Diagnosis Congestive heart failure, acute left ventricular diastolic dysfunction Chronic atrial fibrillation Tachycardia Hypertension COPD Assessment/Plan Congestive heart failure, acute left ventricular diastolic dysfunction secondary to atrial fibrillation with rapid ventricular response, started on Lasix and reporting some improvement. Paroxysmal atrial fibrillation, reporting history of atrial fibrillation in the past, maintained on Pradaxa. Tachycardic at this time. I will start Cardizem drip and titrate to achieve adequate heart rate control. Monitor tolerance and response. Restarted on Pradaxa. Hypertension, controlled on current medication. Continue to monitor blood pr essure Shortness of breath secondary to above. Reporting improvement. COPD, acute exacerbation, managed by Dr. Leal. History of rheumatic fever as a child. Clinical Quality Measures DVT/VTE Risk/Contraindication: Risk Factor Score Per Nursin RFS Level Per Nursing on Admit: 4+=Very High SHELDON MOY MD December 27, 2018 12:09
[2018-12-27] MEDS ORDERED: DILTIAZEM IV FOR DRIP 125 MG in NS (IVPB) 100 ML IV SCH (12:15)
[2018-12-27] MEDS ORDERED: DILTIAZEM 25 MG/5 ML INJ (CARDIZEM) VIAL IVP ONE (12:15)
[2018-12-27] MEDS: DABIGATRAN 75 MG (PRADAXA) CAPSULE PO SCH ×2 (12:49→20:33)
[2018-12-27] MEDS: methylPREDNISolone 40 MG/ML (Solu-MEDROL) VIAL IV SCH ×2 (15:07→18:19)
[2018-12-27] MEDS ORDERED: LEVOFLOXACIN 750 MG/150 ML IV 150 ML IV NR (17:00)
[2018-12-27] MEDS: FUROSEMIDE 40 MG/4 ML INJ (LASIX) IVP SCH (18:20)
[2018-12-27] MEDS: meTOprolol TARTRATE 25 MG (LOPRESSOR) TABLET PO SCH (20:33)
[2018-12-27] MEDS ORDERED: DABIGATRAN 75 MG (PRADAXA) CAPSULE PO SCH (21:00)
[2018-12-28] VITALS (23 sets, daily range): BP systolic 108–169; BP diastolic 50–98
[2018-12-28] MEDS: methylPREDNISolone 40 MG/ML (Solu-MEDROL) VIAL IV SCH ×2 (00:40→06:12)
[2018-12-28] MEDS: MELATONIN 3 MG TABLET PO PRN ×2 (01:17→23:14)
[2018-12-28] MEDS: ANTACID SUSP 30 ML UDC (MYLANTA) PO PRN ×2 (01:18→20:45)
[2018-12-28 04:03] LABS: BASOPHILS % (AUTO) 0 % (0-10); EOSINOPHILS % (AUTO) 0 % (0-10); LYMPHOCYTES # (AUTO) 0.7 X 10^3 (1.0-4.0); LYMPHOCYTES % (AUTO) 7 % (12-44); MEAN CORPUSCULAR HGB CONC 34 G/DL (32-36); MEAN CORPUSCULAR VOLUME 88 FL (80-99); MEAN PLATELET VOLUME 12.2 FL (7.4-10.4); MONOCYTES # (AUTO) 0.6 X 10^3 (0.0-1.0); MONOCYTES % (AUTO) 5 % (0-12); NEUTROPHILS # (AUTO) 9.5 X 10^3 (1.8-7.8); NEUTROPHILS % (AUTO) 88 % (42-75); RED CELL DISTRIBUTION WIDTH 15.8 % (10.0-14.5)
[2018-12-28 04:04] LABS: HEMATOCRIT 42 % (35-52); HEMOGLOBIN 14.5 G/DL (11.5-16.0); MEAN CORPUSCULAR HEMOGLOBIN 30 PG (25-34)
[2018-12-28 04:05] LABS: PLATELET COUNT 40 10^3/uL (130-400)
[2018-12-28 04:15] LABS: CALCIUM 10.1 MG/DL (8.5-10.1); CREATININE SERUM 1.6 MG/DL (0.60-1.30); MAGNESIUM 2.2 MG/DL (1.8-2.4); PHOSPHORUS 3.1 MG/DL (2.3-4.7); POTASSIUM 4.4 MMOL/L (3.6-5.0)
[2018-12-28] MEDS: FUROSEMIDE 40 MG/4 ML INJ (LASIX) IVP SCH (06:12)
--- NOTE | 2018-12-28 06:39 | Pulmonary Progress Note ---
Subjective Time Seen by a Provider: 06:44 Subjective/Events-last exam Pt appears to be doing better. Sepsis Event Evaluation Height, Weight, BMI Height: 5'4.00" Weight: 173lbs. 1.0oz. 78.810782il; 29.4 BMI Method:Stated Focused Exam Lactate Level 12/27/18 06:21: Lactic Acid Level 1.33 Exam Exam Vital Signs Date Time Temp Pulse Resp B/P (MAP) Pulse Ox O2 Delivery O2 Flow Rate FiO2 12/28/18 06:00 72 27 128/69 (88) 93 Room Air 12/28/18 05:00 75 20 127/61 (83) 91 Room Air 12/28/18 04:15 75 25 142/65 (90) 97 Room Air 12/28/18 04:00 Room Air 12/28/18 03:00 80 29 133/61 (85) 94 Room Air 12/28/18 02:00 84 30 147/89 (108) 95 Room Air 12/28/18 01:00 104 30 143/73 (96) 95 Room Air 12/28/18 01:00 104 12/28/18 00:00 Room Air 12/28/18 00:00 92 29 142/72 (95) 95 Room Air 12/28/18 00:00 97.8 12/27/18 23:00 103 28 146/65 (92) 95 Room Air 12/27/18 22:00 105 9 167/92 (117) 94 Room Air 12/27/18 21:00 121 10 155/104 (121) 96 Room Air 12/27/18 20:03 94 Room Air 12/27/18 20:00 98.9 12/27/18 20:00 96 27 141/63 (89) 95 Room Air 12/27/18 20:00 Room Air 12/27/18 19:00 91 12/27/18 19:00 91 23 153/71 (98) 93 Room Air 12/27/18 18:00 98 27 147/73 (97) 98 Room Air 12/27/18 17:00 97 21 134/80 (98) 96 Room Air 12/27/18 16:00 96 Room Air 12/27/18 16:00 104 21 149/64 (92) 97 Room Air 12/27/18 15:52 98.5 12/27/18 15:00 114 14 158/63 (94) 97 Room Air 12/27/18 14:45 99 Room Air 12/27/18 14:00 93 24 150/72 (98) 97 Room Air 12/27/18 13:00 100 21 166/80 (108) 97 Room Air 12/27/18 12:49 114 12/27/18 12:46 96 12/27/18 12:00 95 Room Air 12/27/18 12:00 98.4 12/27/18 12:00 129 22 173/62 (99) 99 Room Air 12/27/18 11:29 96 Room Air 12/27/18 11:00 92 26 152/78 (102) 95 Room Air 12/27/18 10:00 105 20 156/59 (91) 97 Room Air 12/27/18 09:00 121 21 170/71 (104) 99 Room Air 12/27/18 08:00 120 23 177/59 (98) 97 Room Air 12/27/18 07:41 95 Room Air 12/27/18 07:35 97.2 137 25 174/82 (112) 95 Room Air 12/27/18 07:00 112 12/27/18 06:38 96 Room Air I & O 12/28/18 07:00 Intake Total 2300 ml Output Total 2600 ml Balance -300 ml Height & Weight Height: 5'4.00" Weight: 173lbs. 1.0oz. 78.315261ai; 29.4 BMI Method:Stated General Appearance: Anxious, Chronically ill, Mild Distress HEENT: PERRL/EOMI, Normal ENT Inspection, Pharynx Normal Neck: Full Range of Motion, Non Tender, Supple Respiratory: Chest Non Tender, No Accessory Muscle Use, No Respiratory Distress, Decreased Breath Sounds Cardiovascular: Systolic Murmur, Gallop/S3, Irregularly Irregular, Tachycardia Capillary Refill: Less Than 3 Seconds Gastrointestinal: normal bowel sounds, non tender, soft Extremity: Normal Capillary Refill, Normal Inspection, No Pedal Edema Neurologic/Psychiatric: Alert, Oriented x3 Skin: Normal Color, Warm/Dry Lymphatic: No Adenopathy Results Lab Laboratory Tests 12/26/18 15:12 12/27/18 02:51 12/28/18 03:00 Assessment/Plan Assessment/Plan COPD AE -SVNs -Oxygen -Solumedrol Afib RVR -Currently on Cardizem gtt -Pradaxa -Cardiology following CAP - present on admission -Change Levaquin to Omnicef PO x 5 days then D/C CHFAE Diastolic dysfunction -Lasix Metabolic acidosis -Check LA and UA Atelectasis AGUSTO HERRERA DO December 28, 2018 06:39
[2018-12-28] MEDS: RT-ALBUTEROL/IPRATROPIUM 3 ML (DUONEB) VIAL INH SCH ×4 (06:47→18:44)
--- NOTE | 2018-12-28 06:59 | Cardiology Progress Note ---
Subjective Date Seen by Provider: December 28, 2018 Time Seen by Provider: 06:58 Subjective/Events-last exam patient is laying down in bed, feeling better, denied any chest pain. Heart rate is better, still in atrial fibrillation Review of Systems General: No Chills, No Night Sweats, No Fatigue, No Malaise, No Appetite, No Other HEENT: No Head Aches, No Visual Changes, No Eye Pain, No Ear Pain, No Dysphasia, No Sinus Congestion, No Post Nasal Drip, No Sore Throat, No Other Pulmonary: No Dyspnea, No Cough, No Pleuritic Chest Pain, No Other Cardiovascular: No: Chest Pain, Palpitations, Orthopnea, Paroxysmal Noc. Dyspnea, Edema, Lt Headedness, Other Focused Exam Lactate Level 12/27/18 06:21: Lactic Acid Level 1.33 Objective-Cardiology Exam Last Set of Vital Signs Vital Signs 12/28/18 12/28/18 12/28/18 00:00 06:00 06:47 Temp 97.8 Pulse 72 Resp 27 B/P (MAP) 128/69 (88) Pulse Ox 93 O2 Delivery Room Air Capillary Refill : Less Than 3 Seconds I&O Intake and Output 12/28/18 00:00 Intake Total 2650 ml Output Total 2925 ml Balance -275 ml Intake Oral 2350 ml IV Total 300 ml Output Urine Total 2925 ml General: Alert, Oriented X3, Cooperative HEENT: Atraumatic, PERRLA Neck: Supple, No JVD, No Thyromegaly Lungs: Clear to Auscultation, Normal Air Movement Heart: Normal S1, Normal S2, No Murmurs, Other (atrial fibrillation) Abdomen: Normal Bowel Sounds, Soft, No Tenderness, No Hepatosplenomegaly, No Masses Extremities: No Clubbing, No Cyanosis, No Edema, Normal Pulses, No Tenderness/Swelling Skin: No Rashes, No Breakdown, No Significant Lesion Neuro: Normal Gait, Normal Speech, Strength at 5/5 X4 Ext, Normal Tone, Sensation Intact Psych/Mental Status: Mental Status NL, Mood NL Results Lab Laboratory Tests 12/28/18 03:00 A/P-Cardiology Admission Diagnosis Congestive heart failure, acute left ventricular diastolic dysfunction Chronic atrial fibrillation Tachycardia Hypertension COPD Assessment/Plan Congestive heart failure, acute left ventricular diastolic dysfunction secondary to atrial fibrillation with rapid ventricular response, seems Lasix, worsening renal function, hold Lasix for now. Paroxysmal atrial fibrillation, reporting history of atrial fibrillation in the past, maintained on Pradaxa. Tachycardic at this time. I will start Cardizem drip and titrate to achieve adequate heart rate control. Monitor tolerance and response. Restarted on Pradaxa. Thrombocytopenia, significant drop in platelet count, I'll repeat platelet. Continue to monitor for now Hypertension, stop Cardizem drip and start oral Cardizem Shortness of breath secondary to above. Reporting improvement. COPD, acute exacerbation, managed by Dr. Leal. History of rheumatic fever as a child. Clinical Quality Measures DVT/VTE Risk/Contraindication: Risk Factor Score Per Nursin RFS Level Per Nursing on Admit: 4+=Very High SHELDON MOY MD December 28, 2018 06:59
[2018-12-28] MEDS: CEFDINIR 300 MG (OMNICEF) CAP PO SCH ×2 (07:53→20:45)
[2018-12-28] MEDS: LEVOTHYROXINE 100 MCG (LEVOTHROID) TAB PO SCH (07:53)
[2018-12-28] MEDS: lisINopril 20 MG (PRINIVIL) TABLET PO SCH (07:55)
[2018-12-28] MEDS: meTOprolol TARTRATE 25 MG (LOPRESSOR) TABLET PO SCH ×2 (07:55→20:45)
[2018-12-28] MEDS: DABIGATRAN 75 MG (PRADAXA) CAPSULE PO SCH ×2 (07:56→20:45)
[2018-12-28] MEDS: predniSONE 10 MG TAB PO SCH (07:56)
--- NOTE | 2018-12-28 07:58 | Diagnostic Imaging Report ---
INDICATION: Congestive heart failure. Pneumonia. TECHNIQUE: Single view chest at 3:45 AM. CORRELATION STUDY: 12/27/2018 FINDINGS: Cardiac enlargement stable to perhaps slightly increased. Vasculature overall within normal limits. Lung fong appearing generally clear without significant consolidating infiltrate. IMPRESSION: 1. Cardiac enlargement without evidence for overt failure. Dictated by: Dictated on workstation # [id number]
--- NOTE | 2018-12-28 10:05 | Progress Note (SOAP) ---
Subjective Subjective/Events-last exam Afebrile, she states she feels pretty good, wishes she could go home. Remains in atrial fibrillation and tachycardic in 120s. Review of Systems Date Seen by Provider: December 28, 2018 Time Seen by Provider: 08:20 Focused Exam Lactate Level 12/27/18 06:21: Lactic Acid Level 1.33 Objective Exam Last Set of Vital Signs Vital Signs Date Time Temp Pulse Resp B/P (MAP) Pulse Ox O2 Delivery O2 Flow Rate FiO2 12/28/18 09:12 93 Room Air 12/28/18 09:00 137 38 169/98 (121) 12/28/18 08:00 97.5 12/26/18 20:15 21 Capillary Refill : Less Than 3 Seconds I&O Intake and Output 12/28/18 00:00 Intake Total 2650 ml Output Total 2925 ml Balance -275 ml Intake Oral 2350 ml IV Total 300 ml Output Urine Total 2925 ml General: Alert, No Acute Distress Lungs: Other (decreased air movement, rales left base) Heart: Other (tachycardic, irregular) Neuro: Normal Speech Psych/Mental Status: Mental Status NL Results/Procedures Lab Laboratory Tests 12/28/18 03:00: White Blood Count 12.0H, Red Blood Count 4.87, Hemoglobin 14.5, Hematocrit 42, Mean Corpuscular Volume 88, Mean Corpuscular Hemoglobin 30, Mean Corpuscular Hemoglobin Concent 34, Red Cell Distribution Width 15.8H, Platelet Count 40L, Mean Platelet Volume 12.2H, Neutrophils (%) (Auto) 88H, Lymphocytes (%) (Auto) 7L, Monocytes (%) (Auto) 5, Eosinophils (%) (Auto) 0, Basophils (%) (Auto) 0, Neutrophils # (Auto) 9.5H, Lymphocytes # (Auto) 0.7L, Monocytes # (Auto) 0.6, Eosinophils # (Auto) 0.0, Basophils # (Auto) 0.0, Sodium Level 135, Potassium Level 4.4, Chloride Level 102, Carbon Dioxide Level 17L, Anion Gap 16H, Blood Urea Nitrogen 27H, Creatinine 1.60H, Estimat Glomerular Filtration Rate 32, BUN/Creatinine Ratio 17, Glucose Level 180H, Calcium Level 10.1, Phosphorus Level 3.1, Magnesium Level 2.2 Microbiology 12/26/18 Blood Culture - Preliminary, Resulted No growth 12/26/18 MRSA Screen - Final, Complete MRSA not isolated 12/27/18 Urine Culture - Final, Complete NO GROWTH Radiology CXR with question of right base pneumonia, fluid in left base Assessment/Plan Assessment/Plan (1) Community acquired bacterial pneumonia Status: Acute Assessment & Plan: Without meeting sepsis criteria. On levofloxacin. (2) Hypomagnesemia Status: Acute Assessment & Plan: Replace and follow. (3) Hypokalemia Status: Acute Assessment & Plan: Replace and follow (4) COPD exacerbation Status: Acute Assessment & Plan: Solumedrol, Duonebs. Dr. Leal following. (5) CHF exacerbation Status: Acute Assessment & Plan: Cardiology consulted, appreciate recommendations. Improving BNP and symptomatically with lasix. Echo with EF 55-65% and decreased RV systolic function, dilated RA. 12/28 holding lasix due to worsening renal function (6) Atrial fibrillation Status: Chronic Assessment & Plan: Cardiology following, appreciate recommendations. BP stable. Qualifiers: Qualified Codes: I48.2 - Chronic atrial fibrillation (7) Hypothyroidism Status: Chronic Assessment & Plan: Resume home levothyroxine Qualifiers: Qualified Codes: E03.9 - Hypothyroidism, unspecified (8) Hypertension Status: Chronic Assessment & Plan: Resume home medications. Clinic review lists amlodipine, may need restarted if BP remains high. Qualifiers: Qualified Codes: I10 - Essential (primary) hypertension (9) Acute renal impairment Status: Acute Assessment & Plan: Unknown baseline, clinic lab 11/2018 with cr 1.23, suspect underlying chronic renal disease. Holding lasix for now. (10) Thrombocytopenia Status: Acute Assessment & Plan: Sudden drop in platelets, monitor closely. Needs anticoagulation due to a fib. (11) DVT prophylaxis Status: Acute Assessment & Plan: On Pradaxa. Clinical Quality Measures DVT/VTE Risk/Contraindication: Risk Factor Score Per Nursin RFS Level Per Nursing on Admit: 4+=Very High XAVIER SAINZ MD December 28, 2018 10:04
[2018-12-28 10:23] LABS: BASOPHILS % (AUTO) 0 % (0-10); EOSINOPHILS % (AUTO) 0 % (0-10); HEMATOCRIT 45 % (35-52); HEMOGLOBIN 14.9 G/DL (11.5-16.0); LYMPHOCYTES # (AUTO) 0.9 X 10^3 (1.0-4.0); LYMPHOCYTES % (AUTO) 7 % (12-44); MEAN CORPUSCULAR HEMOGLOBIN 29 PG (25-34); MEAN CORPUSCULAR HGB CONC 34 G/DL (32-36); MEAN CORPUSCULAR VOLUME 87 FL (80-99); MEAN PLATELET VOLUME 12.8 FL (7.4-10.4); MONOCYTES # (AUTO) 0.6 X 10^3 (0.0-1.0); MONOCYTES % (AUTO) 5 % (0-12); NEUTROPHILS # (AUTO) 12.3 X 10^3 (1.8-7.8); NEUTROPHILS % (AUTO) 89 % (42-75); PLATELET COUNT 223 10^3/uL (130-400); RED CELL DISTRIBUTION WIDTH 16.2 % (10.0-14.5); WHITE BLOOD COUNT 13.9 10^3/uL (4.3-11.0)
[2018-12-28 10:41] LABS: CREATININE SERUM 1.56 MG/DL (0.60-1.30); POTASSIUM 3.9 MMOL/L (3.6-5.0)
[2018-12-28] MEDS ORDERED: POTA99TA21 PO (11:23)
[2018-12-28] MEDS ORDERED: CLON0.1T PO (11:23)
[2018-12-28] MEDS ORDERED: FURO40TA4 PO (11:23)
[2018-12-28] MEDS ORDERED: ALBU18HF2 INH (11:26)
[2018-12-28] MEDS ORDERED: ALBU2.5V4 NEB (11:26)
--- NOTE | 2018-12-28 11:26 | NUR ---
WENT OVER THE EXT MED HX WITH THE PATIENT AND SHE VERIFIED HOW SHE TAKES EACH MEDICATION. HER LISINOPRIL IS WRITTEN #180 FOR A 90 DAY SUPPLY HOWEVER SHE STATES IT WAS DECREASED TO 1 TAB DAILY. SHE STATES SHE IS NO LONGER TAKING THE LEXAPRO OR MOBIC OR SEVERAL PRESCRIPTIONS THAT WERE FILLED IN .
[2018-12-28] MEDS: DILTIAZEM 120 MG (CARDIZEM CD) CAP PO SCH (13:50)
[2018-12-28] MEDS ORDERED: LEVOFLOXACIN 750 MG/150 ML IV 150 ML IV NR (17:00)
[2018-12-29] VITALS (20 sets, daily range): BP systolic 104–148; BP diastolic 45–84
[2018-12-29 03:35] LABS: BASOPHILS % (AUTO) 0 % (0-10); EOSINOPHILS % (AUTO) 0 % (0-10); HEMATOCRIT 43 % (35-52); HEMOGLOBIN 14.5 G/DL (11.5-16.0); LYMPHOCYTES # (AUTO) 1.7 X 10^3 (1.0-4.0); LYMPHOCYTES % (AUTO) 8 % (12-44); MEAN CORPUSCULAR HEMOGLOBIN 30 PG (25-34); MEAN CORPUSCULAR HGB CONC 34 G/DL (32-36); MEAN CORPUSCULAR VOLUME 86 FL (80-99); MONOCYTES # (AUTO) 1.4 X 10^3 (0.0-1.0); MONOCYTES % (AUTO) 7 % (0-12); NEUTROPHILS # (AUTO) 17.6 X 10^3 (1.8-7.8); NEUTROPHILS % (AUTO) 85 % (42-75); PLATELET COUNT 256 10^3/uL (130-400); RED CELL DISTRIBUTION WIDTH 16.4 % (10.0-14.5); WHITE BLOOD COUNT 20.7 10^3/uL (4.3-11.0)
[2018-12-29 04:01] LABS: CREATININE SERUM 1.55 MG/DL (0.60-1.30); MAGNESIUM 2.5 MG/DL (1.8-2.4); PHOSPHORUS 3.5 MG/DL (2.3-4.7); POTASSIUM 4.4 MMOL/L (3.6-5.0)
[2018-12-29 04:38] LABS: LYMPHOCYTES % (MANUAL) 7 %; MONOCYTES % (MANUAL) 10 %; NEUTROPHILS % (MANUAL) 82 %
[2018-12-29 04:39] LABS: BLAST CELLS 1 %
--- NOTE | 2018-12-29 05:42 | Pulmonary Progress Note ---
Subjective Time Seen by a Provider: 06:33 Subjective/Events-last exam Plan is for cardioversion today. Sepsis Event Evaluation Height, Weight, BMI Height: 5'4.00" Weight: 173lbs. 1.0oz. [id number]; 29.4 BMI Method:Stated Focused Exam Lactate Level 12/27/18 06:21: Lactic Acid Level 1.33 Exam Exam Vital Signs Date Time Temp Pulse Resp B/P (MAP) Pulse Ox O2 Delivery O2 Flow Rate FiO2 12/29/18 05:00 77 12 107/60 (76) 94 Room Air 12/29/18 04:00 75 28 129/63 (85) 91 Room Air 12/29/18 04:00 95.9 12/29/18 04:00 Room Air 12/29/18 03:00 89 22 135/74 (94) 95 Room Air 12/29/18 02:00 81 19 148/68 (94) 92 Room Air 12/29/18 01:00 71 17 135/71 (92) 92 Room Air 12/29/18 01:00 71 12/29/18 00:00 80 24 126/64 (84) 96 Room Air 12/29/18 00:00 Room Air 12/29/18 00:00 96.7 12/28/18 23:00 77 28 132/78 (96) 96 Room Air 12/28/18 22:00 98 23 153/81 (105) 94 Room Air 12/28/18 21:00 109 19 130/70 (90) 94 Room Air 12/28/18 20:00 115 23 119/60 (79) 93 Room Air 12/28/18 20:00 Room Air 12/28/18 20:00 98.0 12/28/18 19:00 120 26 123/51 (75) 95 Room Air 12/28/18 19:00 120 12/28/18 18:44 96 Room Air 12/28/18 18:00 116 17 127/60 (82) 93 Room Air 12/28/18 17:00 112 26 139/69 (92) 97 Room Air 12/28/18 16:00 Room Air 12/28/18 16:00 116 28 110/50 (70) 89 Room Air 12/28/18 16:00 97.6 12/28/18 15:00 120 22 126/71 (89) 95 Room Air 12/28/18 14:00 117 21 142/78 (99) 100 Room Air 12/28/18 13:54 95 Room Air 12/28/18 13:00 101 23 124/65 (84) 95 Room Air 12/28/18 12:53 113 12/28/18 12:00 98.4 12/28/18 12:00 124 37 96 Room Air 12/28/18 12:00 Room Air 12/28/18 11:00 112 21 141/66 (91) 93 Room Air 12/28/18 10:04 95 Room Air 12/28/18 10:00 93 22 146/58 (87) 93 Room Air 12/28/18 09:12 93 Room Air 12/28/18 09:00 137 38 169/98 (121) 93 Room Air 12/28/18 08:00 97.5 12/28/18 08:00 113 40 118/77 (91) 96 Room Air 12/28/18 08:00 Room Air 12/28/18 07:00 90 12/28/18 07:00 90 48 157/73 (101) 94 Room Air 12/28/18 06:47 93 Room Air 12/28/18 06:00 72 27 128/69 (88) 93 Room Air I & O 12/29/18 07:00 Intake Total 910 ml Output Total 1100 ml Balance -190 ml Height & Weight Height: 5'4.00" Weight: 173lbs. 1.0oz. 78.885142ec; 29.4 BMI Method:Stated General Appearance: No Apparent Distress, Anxious, Chronically ill HEENT: PERRL/EOMI, Normal ENT Inspection, Pharynx Normal Neck: Full Range of Motion, Non Tender, Supple Respiratory: Chest Non Tender, No Accessory Muscle Use, No Respiratory Distress, Decreased Breath Sounds Cardiovascular: Systolic Murmur, Gallop/S3, Irregularly Irregular, Tachycardia Capillary Refill: Less Than 3 Seconds Gastrointestinal: normal bowel sounds, non tender, soft Extremity: Normal Capillary Refill, Normal Inspection, No Pedal Edema Neurologic/Psychiatric: Alert, Oriented x3 Skin: Normal Color, Warm/Dry Lymphatic: No Adenopathy Results Lab Laboratory Tests 12/28/18 03:00 12/28/18 10:15 12/29/18 03:00 Assessment/Plan Assessment/Plan COPD AE -SVNs -Oxygen -Prednisone taper Afib RVR -Currently on Cardizem gtt -Pradaxa -Cardiology following Leukocytosis - probably secondary to steroids -Monitor CAP - present on admission -Change Levaquin to Omnicef PO x 5 days then D/C CHFAE Diastolic dysfunction -Lasix Atelectasis AGUSTO HERRERA DO December 29, 2018 05:41
[2018-12-29] MEDS ORDERED: RT-ALBUTEROL/IPRATROPIUM 3 ML (DUONEB) VIAL INH PRN (07:00)
--- NOTE | 2018-12-29 07:47 | Diagnostic Imaging Report ---
INDICATION: Followup CHF. COMPARISON: 12/28/2018 FINDINGS: Single frontal radiographic view of the chest was obtained and demonstrates stable moderate cardiomegaly. Pulmonary vasculature is within normal limits. Lungs are clear. There is no focal consolidation, large effusion, nor pneumothorax. Osseous structures show no gross acute abnormalities. IMPRESSION: 1. Stable exam of the chest showing cardiomegaly, but no evidence of overt failure. Dictated by: Dictated on workstation # [id number]
[2018-12-29] MEDS ORDERED: ENOXAPARIN 80 MG/0.8 ML (LOVENOX) SYR SC NR (08:30)
--- NOTE | 2018-12-29 09:01 | Cardiac Procedure Note-CS/ASA ---
Pre-Procedure Note Pre-Op Procedure Note H&P Reviewed The H&P was reviewed, patient examined and no changes noted. Date H&P Reviewed: December 29, 2018 Time H&P Reviewed: 09:01 Conscious Sedation Pre-Proced Time 09:01 ASA Score 3 For ASA 3 and 4: Consider anesthesia and medical clearance. Also, for patients with a history of failed moderate sedation consider anesthesia. Airway Lungs Heart ASA score ASA 1: a normal healthy patient ASA 2: a patient with a mild systemic disease (mid diabetes, controlled hypertension, obesity x ASA 3: a patient with a severe systemic disease that limits activity (angina, COPD, prior Myocardial infarction) ASA 4: a patient with an incapacitating disease that is a constant threat to life (CHF, renal failure) ASA 5: a moribund patient not expected to survive 24 hrs. (ruptured aneurysm) ASA 6: a declared brain- patient whose organs are being harvested. For emergent operations, add the letter E after the classification Mallampati Classification Grade 3 Sedation Plan Analgesia, Amnesia, Plan communicated to team members, Discussed options with patient/fam, Discussed risks with patient/fam The patient is an appropriate candidate to undergo the planned procedure, sedation, and anesthesia. The patient immediately re-assessed prior to indication. SHELDON MOY MD December 29, 2018 09:01
--- NOTE | 2018-12-29 09:02 | Cardiology Progress Note ---
Subjective Date Seen by Provider: December 29, 2018 Time Seen by Provider: 09:01 Subjective/Events-last exam patient is laying down in bed, denied any chest pain, feeling slightly better, still in atrial fibrillation Review of Systems General: No Chills, No Night Sweats, No Fatigue, No Malaise, No Appetite, No Other HEENT: No Head Aches, No Visual Changes, No Eye Pain, No Ear Pain, No Dysphasia, No Sinus Congestion, No Post Nasal Drip, No Sore Throat, No Other Pulmonary: No Dyspnea, No Cough, No Pleuritic Chest Pain, No Other Cardiovascular: No: Chest Pain, Palpitations, Orthopnea, Paroxysmal Noc. Dyspnea, Edema, Lt Headedness, Other Focused Exam Lactate Level 12/27/18 06:21: Lactic Acid Level 1.33 Objective-Cardiology Exam Last Set of Vital Signs Vital Signs 12/29/18 08:00 Pulse 84 Resp 19 B/P (MAP) 140/62 (88) Pulse Ox 96 O2 Delivery Room Air Capillary Refill : Less Than 3 Seconds I&O Intake and Output 12/29/18 00:00 Intake Total 1210 ml Output Total 1275 ml Balance -65 ml Intake Oral 1210 ml Output Urine Total 1275 ml # Bowel Movements 1 General: Alert, No Acute Distress HEENT: Atraumatic, PERRLA Neck: Supple, No JVD, No Thyromegaly Lungs: Other (decreased air movement, rales left base) Heart: Normal S1, Normal S2, Other (tachycardic, irregular) Abdomen: Normal Bowel Sounds, Soft, No Tenderness, No Hepatosplenomegaly, No Masses Extremities: No Clubbing, No Cyanosis, No Edema, Normal Pulses, No Tenderness/Swelling Skin: No Rashes, No Breakdown, No Significant Lesion Neuro: Normal Speech Psych/Mental Status: Mental Status NL Results Lab Laboratory Tests 12/28/18 10:15 12/29/18 03:00 A/P-Cardiology Admission Diagnosis Congestive heart failure, acute left ventricular diastolic dysfunction Chronic atrial fibrillation Tachycardia Hypertension COPD Assessment/Plan Congestive heart failure, acute left ventricular diastolic dysfunction secondary to atrial fibrillation with rapid ventricular response, feeling better. Continue to monitor Paroxysmal atrial fibrillation, reporting history of atrial fibrillation in the past, maintained on Pradaxa. planning for NINOSKA and electrical cardioversion. Continue to monitor Thrombocytopenia, significant drop in platelet count, I'll repeat platelet. Continue to monitor for now Hypertension, stop Cardizem drip and start oral Cardizem Shortness of breath secondary to above. Reporting improvement. COPD, acute exacerbation, managed by Dr. Leal. History of rheumatic fever as a child. Clinical Quality Measures DVT/VTE Risk/Contraindication: Risk Factor Score Per Nursin RFS Level Per Nursing on Admit: 4+=Very High SHELDON MOY MD December 29, 2018 09:02
[2018-12-29] MEDS ORDERED: NS IV 1000 ML 1,000 ML ONE (09:16)
[2018-12-29] MEDS ORDERED: LIDOCAINE 2% VISCOUS 15 ML UDC ONE (09:34)
[2018-12-29] MEDS: DILTIAZEM 120 MG (CARDIZEM CD) CAP PO SCH (09:44)
[2018-12-29] MEDS: LEVOTHYROXINE 100 MCG (LEVOTHROID) TAB PO SCH (09:45)
[2018-12-29] MEDS: lisINopril 20 MG (PRINIVIL) TABLET PO SCH (09:45)
[2018-12-29] MEDS: DABIGATRAN 75 MG (PRADAXA) CAPSULE PO SCH ×2 (09:45→20:40)
[2018-12-29] MEDS: CEFDINIR 300 MG (OMNICEF) CAP PO SCH ×2 (09:45→20:40)
[2018-12-29] MEDS: predniSONE 10 MG TAB PO SCH (09:45)
[2018-12-29] MEDS: meTOprolol TARTRATE 25 MG (LOPRESSOR) TABLET PO SCH ×2 (09:45→20:40)
[2018-12-29] MEDS ORDERED: proPOfol 200 MG/20 ML (DIPRIVAN) VIAL IV ONE (11:50)
--- NOTE | 2018-12-29 11:51 | NUR ---
Dr. Moise at bedside at this time. Anesthesia notified of pt's preparations for cardioversion. Echo also notified at this time.
--- NOTE | 2018-12-29 12:00 | NUR ---
NINOSKA performed at bedside at this time by Dr. Moise. Anesthesia at bedside at this time. Propofol given for sedation. VSS throughout procedure. Unable to successfully cardiovert due to notable abnormalities found during NINOSKA. Will continue to monitor pt and recover.
--- NOTE | 2018-12-29 12:53 | Anesthesia-Procedure Note ---
Procedures/Interventions Procedure Start/Stop/Diagnosis Date of Procedure: December 29, 2018 Start Time: 12:10 Referring Physician: Dr Moise Preprocedural Diagnosis: A-fib Brief History Anesthesia Note Called to ICU for sedation for NINOSKA/Cardioversion. Brief history obtained from patient and Dr Moise, NPO status verified. Propofol 100 mg IV in divided doses for sedation. Pt maintained spontaneous ventilation throughout and had stable VS. She tolerated the procedure well but had a thrombus so no Cardioversion was not done. Stop Time: 12:20 Postprocedural Diagnosis: A-fib NINOSKA/Cardioversion Anesthesia Type: MAC ASA Class: 3 Medications Propofol 100 mg IV Monitors and Equipment: BP Cuff - Right, Continuous EKG, End Tidal CO2, IV, Pulse Oximeter, V Lead EKG TAMANNA BRIGHT DO December 29, 2018 12:53
--- NOTE | 2018-12-29 12:55 | Anesthesia-General Post-Op ---
MAC Patient Condition Mental Status/LOC: Same as Preop Cardiovascular: Satisfactory Nausea/Vomiting: Absent Respiratory: Satisfactory Pain: Controlled Complications: Absent Post Op Complications Complications None Follow Up Care/Instructions Patient Instructions None needed. Anesthesiology Discharge Order Discharge Order Patient is doing well, no complaints, stable vital signs, no apparent adverse anesthesia problems. TAMANNA BRIGHT DO December 29, 2018 12:55
--- NOTE | 2018-12-29 13:58 | Progress Note (SOAP) ---
Subjective Subjective/Events-last exam Afebrile, breathing is okay per her report, continues to have a fib and rapid heart rate with any activity. Plan for cardioversion later today. Review of Systems Date Seen by Provider: December 29, 2018 Time Seen by Provider: 10:25 Focused Exam Lactate Level 12/27/18 06:21: Lactic Acid Level 1.33 Objective Exam Last Set of Vital Signs Vital Signs Date Time Temp Pulse Resp B/P (MAP) Pulse Ox O2 Delivery O2 Flow Rate FiO2 12/29/18 12:00 84 35 132/82 (99) 96 Room Air 12/29/18 08:00 98.6 12/26/18 20:15 21 Capillary Refill : Less Than 3 Seconds I&O Intake and Output 12/29/18 00:00 Intake Total 1210 ml Output Total 1275 ml Balance -65 ml Intake Oral 1210 ml Output Urine Total 1275 ml # Bowel Movements 1 General: Alert, No Acute Distress Lungs: Clear to Auscultation Heart: Other (irregularly irregular) Neuro: Normal Speech Psych/Mental Status: Mental Status NL Results/Procedures Lab Laboratory Tests 12/29/18 03:00: White Blood Count 20.7H, Red Blood Count 4.92, Hemoglobin 14.5, Hematocrit 43, Mean Corpuscular Volume 86, Mean Corpuscular Hemoglobin 30, Mean Corpuscular Hemoglobin Concent 34, Red Cell Distribution Width 16.4H, Platelet Count 256, Mean Platelet Volume 13.0H, Neutrophils (%) (Auto) 85H, Lymphocytes (%) (Auto) 8L, Monocytes (%) (Auto) 7, Eosinophils (%) (Auto) 0, Basophils (%) (Auto) 0, Neutrophils # (Auto) 17.6H, Lymphocytes # (Auto) 1.7, Monocytes # (Auto) 1.4H, Eosinophils # (Auto) 0.0, Basophils # (Auto) 0.0, Neutrophils % (Manual) 82, Lymphocytes % (Manual) 7, Monocytes % (Manual) 10, Blast Cells 1, Sodium Level 136, Potassium Level 4.4, Chloride Level 101, Carbon Dioxide Level 21, Anion Gap 14, Blood Urea Nitrogen 45H, Creatinine 1.55H, Estimat Glomerular Filtration Rate 33, BUN/Creatinine Ratio 29, Glucose Level 156H, Calcium Level 10.0, Phosphorus Level 3.5, Magnesium Level 2.5H Microbiology 12/26/18 Blood Culture - Preliminary, Resulted No growth 12/26/18 MRSA Screen - Final, Complete MRSA not isolated 12/27/18 Urine Culture - Final, Complete NO GROWTH Radiology CXR with question of right base pneumonia, fluid in left base Assessment/Plan Assessment/Plan (1) Community acquired bacterial pneumonia Status: Acute Assessment & Plan: Without meeting sepsis criteria. On levofloxacin. 12/29 changed to oral cefdinir, doing well (2) Hypomagnesemia Status: Acute Assessment & Plan: Replace and follow. (3) Hypokalemia Status: Acute Assessment & Plan: Replace and follow (4) COPD exacerbation Status: Acute Assessment & Plan: Solumedrol, Duonebs. Dr. Leal following. 12/29 changed to oral prednisone taper, doing well. (5) CHF exacerbation Status: Acute Assessment & Plan: Cardiology consulted, appreciate recommendations. Improving BNP and symptomatically with lasix. Echo with EF 55-65% and decreased RV systolic function, dilated RA. 12/28 holding lasix due to worsening renal function (6) Atrial fibrillation Status: Chronic Assessment & Plan: Cardiology following, appreciate recommendations. BP stable. 12/29 plan for cardioversion today Qualifiers: Qualified Codes: I48.2 - Chronic atrial fibrillation (7) Hypothyroidism Status: Chronic Assessment & Plan: Resume home levothyroxine Qualifiers: Qualified Codes: E03.9 - Hypothyroidism, unspecified (8) Hypertension Status: Chronic Assessment & Plan: Resume home medications. Clinic review lists amlodipine, may need restarted if BP remains high. Qualifiers: Qualified Codes: I10 - Essential (primary) hypertension (9) Acute renal impairment Status: Acute Assessment & Plan: Unknown baseline, clinic lab 11/2018 with cr 1.23, suspect underlying chronic renal disease. Holding lasix for now. 12/29 creatinine 1.55, stable from yesterday (10) Thrombocytopenia Status: Resolved Assessment & Plan: Sudden drop in platelets, monitor closely. Needs anticoagulation due to a fib. 12/29 repeat check normal (11) DVT prophylaxis Status: Acute Assessment & Plan: On Pradaxa. Clinical Quality Measures DVT/VTE Risk/Contraindication: Risk Factor Score Per Nursin RFS Level Per Nursing on Admit: 4+=Very High XAVIER SAINZ MD December 29, 2018 13:58
--- NOTE | 2018-12-29 18:39 | NUR ---
Report called to [facility] on [address] Floor. Personal belongings with pt during transfer. Pt transferred by Nurse Geoffrey tech at this time via wheelchair.
--- NOTE | 2018-12-29 19:10 | NUR ---
Transferred from ICU to room 423 via WC accompanied by nurse aid. Awake and alert. Denies needs at this time. Will continue to monitor.
[2018-12-30 00:24] VITALS: BP 161/65
[2018-12-30 04:53] VITALS: BP 134/63
[2018-12-30 06:25] LABS: BASOPHILS % (AUTO) 0 % (0-10); EOSINOPHILS % (AUTO) 0 % (0-10); HEMATOCRIT 42 % (35-52); HEMOGLOBIN 13.8 G/DL (11.5-16.0); LYMPHOCYTES # (AUTO) 2.8 X 10^3 (1.0-4.0); LYMPHOCYTES % (AUTO) 23 % (12-44); MEAN CORPUSCULAR HEMOGLOBIN 29 PG (25-34); MEAN CORPUSCULAR HGB CONC 33 G/DL (32-36); MEAN CORPUSCULAR VOLUME 88 FL (80-99); MEAN PLATELET VOLUME 12.7 FL (7.4-10.4); MONOCYTES # (AUTO) 1.7 X 10^3 (0.0-1.0); MONOCYTES % (AUTO) 14 % (0-12); NEUTROPHILS # (AUTO) 7.5 X 10^3 (1.8-7.8); NEUTROPHILS % (AUTO) 62 % (42-75); PLATELET COUNT 215 10^3/uL (130-400); RED CELL DISTRIBUTION WIDTH 16.2 % (10.0-14.5); WHITE BLOOD COUNT 12.1 10^3/uL (4.3-11.0)
[2018-12-30 06:53] LABS: CALCIUM 9.1 MG/DL (8.5-10.1); CREATININE SERUM 1.45 MG/DL (0.60-1.30); MAGNESIUM 2.8 MG/DL (1.8-2.4); PHOSPHORUS 3.1 MG/DL (2.3-4.7); POTASSIUM 4.6 MMOL/L (3.6-5.0)
--- NOTE | 2018-12-30 07:32 | Pulmonary Progress Note ---
Subjective Time Seen by a Provider: 07:31 Subjective/Events-last exam PT appears to be doing better. Sepsis Event Evaluation Height, Weight, BMI Height: 5'4.00" Weight: 180lbs. 4.0oz. 81.999194ou; 29.4 BMI Method:Stated Exam Exam Vital Signs Date Time Temp Pulse Resp B/P (MAP) Pulse Ox O2 Delivery O2 Flow Rate FiO2 12/30/18 04:53 97.6 70 17 134/63 (86) 96 Room Air 12/30/18 01:00 69 12/30/18 00:24 97.1 69 16 161/65 (97) 97 Room Air 12/29/18 19:20 Room Air 12/29/18 19:20 89 12/29/18 19:12 98.4 92 16 147/66 (93) 96 Room Air 12/29/18 18:00 84 14 116/57 (76) 98 Room Air 12/29/18 17:00 64 18 129/66 (87) 100 Room Air 12/29/18 16:00 Room Air 12/29/18 16:00 70 18 111/55 (73) 98 Room Air 12/29/18 16:00 97.6 12/29/18 15:00 77 14 126/51 (76) 100 Room Air 12/29/18 14:00 72 17 112/84 (93) 99 Room Air 12/29/18 13:00 80 20 104/45 (64) 99 Room Air 12/29/18 13:00 80 12/29/18 12:00 84 35 132/82 (99) 96 Room Air 12/29/18 12:00 Room Air 12/29/18 11:00 80 19 136/66 (89) 98 Room Air 12/29/18 10:00 64 20 128/58 (81) 100 Room Air 12/29/18 08:00 98.6 12/29/18 08:00 Room Air 12/29/18 08:00 84 19 140/62 (88) 96 Room Air I & O 12/30/18 07:00 Intake Total 1940 ml Output Total 1625 ml Balance 315 ml Height & Weight Height: 5'4.00" Weight: 180lbs. 4.0oz. 81.602049ym; 29.4 BMI Method:Stated General Appearance: No Apparent Distress, Anxious, Chronically ill HEENT: PERRL/EOMI, Normal ENT Inspection, Pharynx Normal Neck: Full Range of Motion, Non Tender, Supple Respiratory: Chest Non Tender, No Accessory Muscle Use, No Respiratory Distress, Decreased Breath Sounds Cardiovascular: Systolic Murmur, Gallop/S3, Irregularly Irregular, Tachycardia Capillary Refill: Less Than 3 Seconds Gastrointestinal: normal bowel sounds, non tender, soft Extremity: Normal Capillary Refill, Normal Inspection, No Pedal Edema Neurologic/Psychiatric: Alert, Oriented x3 Skin: Normal Color, Warm/Dry Lymphatic: No Adenopathy Results Lab Laboratory Tests 12/28/18 10:15 12/29/18 03:00 12/30/18 05:50 Assessment/Plan Assessment/Plan COPD AE - improved -SVNs -Oxygen -Prednisone taper Afib -Pradaxa -Cardiology following Leukocytosis - probably secondary to steroids -Monitor CAP - present on admission -Change Levaquin to Omnicef PO x 5 days then D/C CHFAE Diastolic dysfunction -Lasix Atelectasis AGUSTO HERRERA DO December 30, 2018 07:32
--- NOTE | 2018-12-30 08:03 | Cardiology Progress Note ---
Subjective Date Seen by Provider: December 30, 2018 Time Seen by Provider: 08:01 Subjective/Events-last exam patient is laying down in bed, feeling better. No new complaint. Review of Systems General: No Chills, No Night Sweats, No Fatigue, No Malaise, No Appetite, No Other HEENT: No Head Aches, No Visual Changes, No Eye Pain, No Ear Pain, No Dysphasia, No Sinus Congestion, No Post Nasal Drip, No Sore Throat, No Other Pulmonary: Dyspnea, Cough; No Pleuritic Chest Pain, No Other Cardiovascular: No: Chest Pain, Palpitations, Orthopnea, Paroxysmal Noc. Dyspnea, Edema, Lt Headedness, Other Objective-Cardiology Exam Last Set of Vital Signs Vital Signs 12/30/18 12/30/18 04:53 07:00 Temp 97.6 Pulse 72 Resp 17 B/P (MAP) 134/63 (86) Pulse Ox 96 O2 Delivery Room Air Capillary Refill : Less Than 3 Seconds I&O Intake and Output 12/30/18 00:00 Intake Total 1440 ml Output Total 1325 ml Balance 115 ml Intake Oral 1440 ml Output Urine Total 1325 ml General: Alert, No Acute Distress HEENT: Atraumatic, PERRLA Neck: Supple, No JVD, No Thyromegaly Lungs: Clear to Auscultation Heart: Normal S1, Normal S2, Other (irregularly irregular) Abdomen: Normal Bowel Sounds, Soft, No Tenderness, No Hepatosplenomegaly, No Masses Extremities: No Clubbing, No Cyanosis, No Edema, Normal Pulses, No Tenderness/Swelling Skin: No Rashes, No Breakdown, No Significant Lesion Neuro: Normal Speech Psych/Mental Status: Mental Status NL Results Lab Laboratory Tests 12/30/18 05:50 A/P-Cardiology Admission Diagnosis Congestive heart failure, acute left ventricular diastolic dysfunction Chronic atrial fibrillation Tachycardia Hypertension COPD Assessment/Plan Congestive heart failure, acute left ventricular diastolic dysfunction secondary to atrial fibrillation with rapid ventricular response, heart rate is better, feeling better. Okay for discharge from cardiology standpoint Paroxysmal atrial fibrillation, reporting history of atrial fibrillation in the past, maintained on Pradaxa. NINOSKA showed possible left atrial thrombus. I will change Pradaxa to Eliquis and evaluate tolerance and response Hypertension, blood pressure is better controlled. Continue to monitor Shortness of breath secondary to above. Reporting improvement. COPD, acute exacerbation, managed by Dr. Leal. History of rheumatic fever as a child. NINOSKA did not show any significant valvular disease or rheumatic heart disease. Okay for discharge from cardiology standpoint Clinical Quality Measures DVT/VTE Risk/Contraindication: Risk Factor Score Per Nursin RFS Level Per Nursing on Admit: 4+=Very High SHELDON MOY MD December 30, 2018 08:03
[2018-12-30] MEDS ORDERED: DILT120C94 PO (08:05)
[2018-12-30] MEDS ORDERED: APIX5TAB4 PO (08:05)
[2018-12-30 08:32] VITALS: BP 140/64
[2018-12-30] MEDS: LEVOTHYROXINE 100 MCG (LEVOTHROID) TAB PO SCH (09:07)
[2018-12-30] MEDS: lisINopril 20 MG (PRINIVIL) TABLET PO SCH (09:07)
[2018-12-30] MEDS: DABIGATRAN 75 MG (PRADAXA) CAPSULE PO SCH (09:07)
[2018-12-30] MEDS: CEFDINIR 300 MG (OMNICEF) CAP PO SCH (09:07)
[2018-12-30] MEDS: DILTIAZEM 120 MG (CARDIZEM CD) CAP PO SCH (09:08)
[2018-12-30] MEDS: meTOprolol TARTRATE 25 MG (LOPRESSOR) TABLET PO SCH (09:08)
[2018-12-30] MEDS: predniSONE 10 MG TAB PO SCH (09:08)
[2018-12-30] MEDS ORDERED: CEFD300C3 PO (12:14)
[2018-12-30] MEDS ORDERED: PRD10T PO (12:14)
--- NOTE | 2018-12-30 12:43 | Discharge Instructions ---
Discharge [facility] Discharge Medications New, Converted or Re-Newed RX: Transmitted to Pharmacy New Medications: Apixaban (Eliquis) 5 Mg Tab.ds.pk 5 MG PO BID, #60 PKG 2 Refills Cefdinir (Cefdinir) 300 Mg Capsule 300 MG PO BID, #14 CAP 0 Refills Diltiazem HCl (Diltiazem 24Hr Cd) 120 Mg Cap.er.24h 120 MG PO DAILY, #30 CAP 3 Refills Prednisone (Prednisone) 10 Mg Tab 0 PO UD, #42 TAB 0 Refills Take 6 tabs(60mg)daily, decrease by 1 tab(10mg) every other day. Continued Medications: Albuterol Sulfate (Albuterol Sulfate) 2.5 Mg/3 Ml Vial.neb 2.5 MG NEB Q6H PRN for SHORTNESS OF BREATH, EA Albuterol Sulfate (Ventolin Hfa) 18 Gm Hfa.aer.ad 2 PUFF INH Q6H PRN for SHORTNESS OF BREATH, INHALER Clonidine HCl (Clonidine HCl) 0.1 Mg Tablet 0.1 MG PO BID, TAB Furosemide (Furosemide) 40 Mg Tablet 40 MG PO DAILY PRN for SWELLING, TAB Levothyroxine Sodium (Levothyroxine Sodium) 100 Mcg Tablet 100 MCG PO DAILY, TAB Lisinopril (Lisinopril) 20 Mg Tablet 20 MG PO DAILY, TAB Metoprolol Tartrate (Metoprolol Tartrate) 50 Mg Tablet 50 MG PO BID, TAB Potassium Gluconate (Potassium) 99 Mg Tablet 99 MG PO DAILY PRN for WHEN TAKING FUROSEMIDE, TAB Discontinued Medications: Dabigatran Etexilate Mesylate (Pradaxa) 75 Mg Capsule 75 MG PO BID, CAP Patient Instructions Goal/Follow Up Appt: Follow up with Dr. Moise in a week. Follow up with Dr. Sales on January 06 at 10 am. Patient Instructions: Your cefdinir, prednisone and cardizem prescriptions will be available to you at [facility] in [facility] at no cost. Activity & Diet Discharge Diet: Low Sodium Diet Copy Copies To 1: AUTUMN,SADE SAINZ,XAVIER Broderick MD December 30, 2018 12:16
--- NOTE | 2018-12-30 12:49 | Discharge Summary ---
Diagnosis/Chief Complaint Date of Admission December 28, 2018 at 08:53 Date of Discharge December 30, 2018 Admission Diagnosis Admission Diagnosis Pneumonia CHF exacerbation Atrial fibrillation with RVR Discharge Diagnosis See problem list Problems/Diagnosis: (1) Community acquired bacterial pneumonia Assessment & Plan: Without meeting sepsis criteria. On levofloxacin. 12/29 changed to oral cefdinir, doing well 12/30 discharged with cefdinir x 7 days Status: Acute (2) Hypomagnesemia Assessment & Plan: Replace and follow. Status: Acute (3) Hypokalemia Assessment & Plan: Replace and follow Status: Acute (4) COPD exacerbation Assessment & Plan: Solumedrol, Travononebs. Dr. Leal following. 12/30 changed to oral prednisone taper, doing well, discharged with prednisone taper. Status: Acute (5) CHF exacerbation Assessment & Plan: Cardiology consulted, appreciate recommendations. Improving BNP and symptomatically with lasix. Echo with EF 55-65% and decreased RV systolic function, dilated RA. 12/28 holding lasix due to worsening renal function 12/30 creatinine trending down, d/c on normal lasix. Status: Acute (6) Atrial fibrillation Assessment & Plan: Cardiology following, appreciate recommendations. BP stable. 12/29 plan for cardioversion today 12/30 cardioversion not done as left atrial thrombus seen on NINOSKA, Cardiology changed Pradaxa to Eliquis. Qualifiers: Qualified Codes: I48.2 - Chronic atrial fibrillation Status: Chronic (7) Hypothyroidism Assessment & Plan: Resume home levothyroxine Qualifiers: Qualified Codes: E03.9 - Hypothyroidism, unspecified Status: Chronic (8) Hypertension Assessment & Plan: Resume home medications. Clinic review lists amlodipine, may need restarted if BP remains high. Qualifiers: Qualified Codes: I10 - Essential (primary) hypertension Status: Chronic (9) Acute renal impairment Assessment & Plan: Unknown baseline, clinic lab 11/2018 with cr 1.23, suspect un derlying chronic renal disease. Holding lasix for now. 12/29 creatinine 1.55, stable from yesterday 12/30 creatinine down to 1.4, will need to continue outpatient follow up. Status: Acute (10) Thrombocytopenia Assessment & Plan: Sudden drop in platelets, monitor closely. Needs anticoagulation due to a fib. 12/29 repeat check normal Status: Resolved Resolution Date/Time: 12/29/18 @ 13:57 Chief Complaint/HPI Chief Complaint/HPI 73 yo female started to have cough a few days ago and was getting worse so she came to ER. She did not have known fever. She does report an "enlarged heart" and taking lasix as needed- she takes when she is getting swollen and reports this amounts to once every few months. She denies coronary artery disease, states she had rheumatic fever as a child. She has atrial fibrillation and is on Pradaxa and metoprolol. This morning she is feeling much better already. Discharge Summary-Simple/Stand Consultations Discharge Physical Examination Allergies: Coded Allergies: latex (Verified Allergy, Unknown, 12/26/18) Uncoded Allergies: SULFA (Allergy, Unknown, 12/26/18) Vitals & I&Os Vital Sign - Last 12Hours Date Time Temp Pulse Resp B/P (MAP) Pulse Ox O2 Delivery O2 Flow Rate FiO2 12/30/18 08:32 98.4 65 19 140/64 (89) 98 Room Air 0.00 12/26/18 20:15 21 Intake and Output 12/30/18 00:00 Intake Total 1440 ml Output Total 875 ml Balance 565 ml General Appearance: Alert, No Acute Distress Respiratory: Clear to Auscultation, Normal Air Movement Cardiovascular: Other (irregularly irregular) Neuro: Normal Speech Psych/Mental Status: Mental Status NL Hospital Course See final discharge diagnosis. Labs Laboratory Tests Test 12/29/18 03:00 12/30/18 05:50 Range/Units White Blood Count 20.7 H 12.1 H 4.3-11.0 10^3/uL Red Blood Count 4.92 4.71 4.35-5.85 10^6/uL Hemoglobin 14.5 13.8 11.5-16.0 G/DL Hematocrit 43 42 35-52 % Mean Corpuscular Volume 86 88 80-99 FL Mean Corpuscular Hemoglobin 30 29 25-34 PG Mean Corpuscular Hemoglobin Concent 34 33 32-36 G/DL Red Cell Distribution Width 16.4 H 16.2 H 10.0-14.5 % Platelet Count 256 215 130-400 10^3/uL Mean Platelet Volume 13.0 H 12.7 H 7.4-10.4 FL Neutrophils (%) (Auto) 85 H 62 42-75 % Lymphocytes (%) (Auto) 8 L 23 12-44 % Monocytes (%) (Auto) 7 14 H 0-12 % Eosinophils (%) (Auto) 0 0 0-10 % Basophils (%) (Auto) 0 0 0-10 % Neutrophils # (Auto) 17.6 H 7.5 1.8-7.8 X 10^3 Lymphocytes # (Auto) 1.7 2.8 1.0-4.0 X 10^3 Monocytes # (Auto) 1.4 H 1.7 H 0.0-1.0 X 10^3 Eosinophils # (Auto) 0.0 0.0 0.0-0.3 10^3/uL Basophils # (Auto) 0.0 0.0 0.0-0.1 10^3/uL Neutrophils % (Manual) 82 % Lymphocytes % (Manual) 7 % Monocytes % (Manual) 10 % Blast Cells 1 % Sodium Level 136 137 135-145 MMOL/L Potassium Level 4.4 4.6 3.6-5.0 MMOL/L Chloride Level 101 105 98-107 MMOL/L Carbon Dioxide Level 21 25 21-32 MMOL/L Anion Gap 14 7 5-14 MMOL/L Blood Urea Nitrogen 45 H 52 H 7-18 MG/DL Creatinine 1.55 H 1.45 H 0.60-1.30 MG/DL Estimat Glomerular Filtration Rate 33 35 BUN/Creatinine Ratio 29 36 Glucose Level 156 H 101 70-105 MG/DL Calcium Level 10.0 9.1 8.5-10.1 MG/DL Phosphorus Level 3.5 3.1 2.3-4.7 MG/DL Magnesium Level 2.5 H 2.8 H 1.8-2.4 MG/DL Radiology Reviewed CXR with question of right base pneumonia, fluid in left base Discharge Instructions to patient/family Please see electronic discharge instructions given to patient. Discharge Medications Reviewed and agree with Discharge Medication list on patient's Discharge Instruction sheet Clinical Quality Measures DVT/VTE Risk/Contraindication: Risk Factor Score Per Nursin RFS Level Per Nursing on Admit: 4+=Very High Copy Copies To 1: SELF,XAVIER LESLIE MD, MD December 30, 2018 12:49
[2018-12-30 12:59] VITALS: BP 134/62
[2018-12-30 15:00] VITALS: BP 134/62
== END 2018-12-30 12:34 | disposition home or self-care (01) | DRG 291 ==
LOC: EDUNIT# 14:36 → ER FS 14:39 → ICU 16:53 → UNDOADMOB 16:53 → ICU 18:35 → OBSVTOIN 12-28 08:53 → INTOOBSV 12-28 08:53 → 4TH 12-29 18:27 → ICU 12-29 18:27 → UNDODISIN 12-30 12:34
PROVIDERS: ADMIT Internal Medicine; ATTEND Family Medicine
DX: I11.0 Hypertensive heart disease with heart failure (principal); I50.31 Acute diastolic (congestive) heart failure; I48.0 Paroxysmal atrial fibrillation; J15.9 Unspecified bacterial pneumonia; J44.0 Chronic obstructive pulmonary disease with (acute) lower respiratory infection; J44.1 Chronic obstructive pulmonary disease with (acute) exacerbation; E87.2 Acidosis; J98.11 Atelectasis; N28.9 Disorder of kidney and ureter, unspecified; D69.6 Thrombocytopenia, unspecified; E87.6 Hypokalemia; E83.42 Hypomagnesemia; I51.3 Intracardiac thrombosis, not elsewhere classified; E03.9 Hypothyroidism, unspecified; M19.91 Primary osteoarthritis, unspecified site; Z79.01 Long term (current) use of anticoagulants; Z91.14 Patient's other noncompliance with medication regimen
CPT/HCPCS: 36415; 71045; 71046; 80048; 80053; 81000; 82805; 83605; 83735; 83880; 84100; 84484; 85007; 85025; 85027; 85610; 85730; 87040; 87081; 87088; 93005; 93306; 93312; 93320; 93325; 94640; 96374; 96375; G0378

== ENCOUNTER → 2019-01-26 | Outpatient (CLI) | payer MEDICARE, MEDICAID ==
[~2019-01-26] VITALS: Ht 162.6 cm; Wt 83.5 kg
[~2019-01-26] MED LIST: ALBU18HF2 INH; ALBU2.5V4 NEB; APIX5TAB4 PO; CATHETER FLUSH 10 ML SYR IV PRN; CEFD300C3 PO; CLON0.1T PO; DABI75CA3 PO; DILT120C94 PO; FURO40TA4 PO; LEVO100T7 PO; LISI-552 PO; METO50TA15 PO; POTA99TA21 PO; PRD10T PO; REGADENOSON 0.4 MG/5 ML SYR (LEXISCAN) IV ONE
[2019-01-26 13:16] VITALS: BP 165/75
--- NOTE | 2019-01-26 15:52 | STRESS TEST ---
DATE OF SERVICE: 01/26/2019 LEXISCAN MYOVIEW STRESS TEST REPORT REFERRING PHYSICIAN: Self. Baseline heart rate is 66. Baseline blood pressure 165/75. Baseline EKG sinus rhythm with no ischemic changes. In summary, the patient was injected with 10.37 mCi of technetium-99 Myoview and the resting images were obtained. Then, the patient received 0.4 mg of Lexiscan followed by 31.5 mCi of technetium-99 Myoview. Throughout the test, there were no EKG changes. The resting and stress images were reviewed and compared in the short axis, horizontal long axis, and vertical long axis views. Review of the images showed breast attenuation with typical female pattern with no significant ischemia or infarction. SSS is 1, SDS 1, TID value 1.11. On the gated images, the left ventricle appeared to be normal size with normal contractility. Calculated ejection fraction 66%. CONCLUSION: 1. The patient tolerated Lexiscan well. 2. Typical female pattern with no significant ischemia or infarction on SPECT images. 3. Normal left ventricular size with normal contractility. Calculated ejection fraction 66%. Job ID: [id number] DocumentID: [id number] Dictated Date: 01/26/2019 14:31:19 Child Development Consultant Date: 01/26/2019 15:52:02 Dictated By: SHELDON MOY MD
== END ==
LOC: RAD 11:28
PROVIDERS: ATTEND Internal Medicine Cardiovascular Disease
DX: I11.0 Hypertensive heart disease with heart failure (principal); I50.9 Heart failure, unspecified; I34.0 Nonrheumatic mitral (valve) insufficiency; I48.0 Paroxysmal atrial fibrillation; I48.2 Chronic atrial fibrillation
CPT/HCPCS: 78452; 93017

== ENCOUNTER 2019-03-30 08:29 | Day surgery (SDC) | payer MEDICARE, MEDICAID ==
[~2019-03-30] VITALS: Ht 162.6 cm; Wt 79.8 kg
[2019-03-30] VITALS (24 sets, daily range): BP systolic 106–185; BP diastolic 58–91
[~2019-03-30 08:29] MED LIST changes: -CATHETER FLUSH 10 ML SYR IV PRN; -REGADENOSON 0.4 MG/5 ML SYR (LEXISCAN) IV ONE
[2019-03-30] MEDS ORDERED: NS IV 1000 ML 1,000 ML ONE (08:36)
[2019-03-30] MEDS ORDERED: HEParin (CATH LAB) 0 ML IV ONE (08:36)
[2019-03-30] MEDS ORDERED: LIDOCAINE 1% INJ 20 ML 20 ML VIAL ONE (08:36)
[2019-03-30] MEDS ORDERED: NS IV 1000 ML 1,000 ML IV SCH (08:39)
[2019-03-30] MEDS ORDERED: LIDOCAINE 2% VISCOUS 15 ML UDC PO ONE (08:45)
[2019-03-30] MEDS ORDERED: LIDOCAINE 2% VISCOUS 15 ML UDC ONE (08:57)
[2019-03-30 09:05] LABS: HEMOGLOBIN 13.3 G/DL (11.5-16.0); MEAN PLATELET VOLUME 12.3 FL (7.4-10.4); RED CELL DISTRIBUTION WIDTH 14.9 % (10.0-14.5); WHITE BLOOD COUNT 8.2 10^3/uL (4.3-11.0)
[2019-03-30] MEDS ORDERED: APIX5TAB PO (09:05)
[2019-03-30] MEDS ORDERED: DILT120C53 PO (09:05)
[2019-03-30 09:19] LABS: INR 1.5 (0.8-1.4); PROTHROMBIN TIME PATIENT 18.6 SEC (12.2-14.7)
--- NOTE | 2019-03-30 09:24 | Diagnostic Imaging Report ---
Examination: Chest one view. History: Atrial fibrillation. Findings: Comparison is 12/29/2018. Heart size is enlarged. Size is unchanged. No pleural effusion or pneumothorax. No edema or pneumonia. IMPRESSION: 1. Unchanged enlargement of the heart. Dictated by: Dictated on workstation # [id number]
[2019-03-30 09:33] LABS: ALBUMIN 4.5 GM/DL (3.2-4.5); BILIRUBIN,TOTAL 1.1 MG/DL (0.1-1.0); CALCIUM 10.4 MG/DL (8.5-10.1); CREATININE SERUM 1.19 MG/DL (0.60-1.30); POTASSIUM 3.6 MMOL/L (3.6-5.0); TOTAL PROTEIN 7.8 GM/DL (6.4-8.2)
[2019-03-30] MEDS ORDERED: proPOfol 200 MG/20 ML (DIPRIVAN) VIAL IV ONE (09:40)
[2019-03-30] MEDS ORDERED: MIDAZOLAM 5 MG/5 ML (VERSED) VIAL ONE (09:40)
[2019-03-30] MEDS ORDERED: NAPR220T66 PO (09:41)
[2019-03-30] MEDS ORDERED: ACET325T49 PO (09:41)
[2019-03-30] MEDS ORDERED: DIPH-718 PO (09:41)
--- NOTE | 2019-03-30 09:41 | NUR ---
SPOKE WITH PATIENT WELL HER DAUGHTER WHO TAKES CARE OF HER MEDS (THEY BROUGHT IN ALL HER BOTTLES) AND WENT THRU THE EXTERNAL MED HISTORY TO COMPLETE THE MED REC. HER AND HER DAUGHTER WERE ABLE TO VERIFY ALL MEDS AND HOW SHE TAKES THEM. OTC MEDS: ACETAMINOPHEN 325M TABS Q 8 H PRN ALEVE 220M TABS Q 8 H PRN DIPHENHYDRAMINE 25M D PRN POTASSIUM 99M DAILY PRN (ONLY TAKES WHEN PT TAKES HER FUROSEMIDE)
--- NOTE | 2019-03-30 09:59 | Cardiac Procedure Note-CS/ASA ---
Pre-Procedure Note Pre-Op Procedure Note H&P Reviewed The H&P was reviewed, patient examined and no changes noted. Date H&P Reviewed: Mar 30, 2019 Time H&P Reviewed: 09:59 Conscious Sedation Pre-Proced Time 09:59 ASA Score 3 For ASA 3 and 4: Consider anesthesia and medical clearance. Also, for patients with a history of failed moderate sedation consider anesthesia. Airway Lungs Heart ASA score ASA 1: a normal healthy patient ASA 2: a patient with a mild systemic disease (mid diabetes, controlled hypertension, obesity x ASA 3: a patient with a severe systemic disease that limits activity (angina, COPD, prior Myocardial infarction) ASA 4: a patient with an incapacitating disease that is a constant threat to life (CHF, renal failure) ASA 5: a moribund patient not expected to survive 24 hrs. (ruptured aneurysm) ASA 6: a declared brain- patient whose organs are being harvested. For emergent operations, add the letter E after the classification Mallampati Classification Grade 3 Sedation Plan Analgesia, Amnesia, Plan communicated to team members, Discussed options with patient/fam, Discussed risks with patient/fam The patient is an appropriate candidate to undergo the planned procedure, sedation, and anesthesia. The patient immediately re-assessed prior to indication. SHELDON MOY MD Mar 30, 2019 09:59
--- NOTE | 2019-03-30 10:45 | NUR ---
VERSED 2MG IV AND 90 OF PROPOFOL GIVEN BY ANESTHESIA. SEE ANESTHESIA RECORD FOR DETAILS.
--- NOTE | 2019-03-30 10:47 | Cardioversion ---
Cardioversion PROCEDURE PHYSICIAN: Sheldon Moise DATE OF PROCEDURE: 03/30/19 DIRECT EXTERNAL ELECTRICAL CARDIOVERSION: Indications: Atrial Fibrillation Preoperative diagnoses: Atrial Fibrillation Postoperative diagnosis: atrial fibrillation Anesthesia: By Anesthesia services Complications: None Specimen: None Contrast: 0 Flouroscopy: none Procedure Details: The patient was brought the qc lab technician after informed consent was taken, all the risks and complications were explained including the risk of stroke. Electrical cardioversion was carried out with anesthesia support with propofol. 200 joules of synchronized shock was delivered through external patches which failed to restore sinus rhythm. Conclusions: Failed electrical cardioversion in terminating atrial fibrillation Final Diagnosis: Permanent atrial fibrillation Palpitation Hypertension Hyperlipidemia SHELDON MOISE MD Mar 30, 2019 10:47
--- NOTE | 2019-03-30 10:53 | Anesthesia-Procedure Note ---
Procedures/Interventions Procedure Start/Stop/Diagnosis Date of Procedure: Mar 30, 2019 Start Time: 10:20 Referring Physician: Suma Preprocedural Diagnosis: A-fib Stop Time: 10:37 NINOSKA/Cardioversion Anesthesia Type: MAC ASA Class: 3 Medications Versed 2mg, Propofol 90 mg Monitors and Equipment: BP Cuff - Right, Continuous EKG, End Tidal CO2, IV, Pulse Oximeter READING,ENA Francis CRNA Mar 30, 2019 10:53
--- NOTE | 2019-03-30 11:05 | NUR ---
PATIENT REPORT GIVEN TO LEV GALLEGOS.
--- NOTE | 2019-03-30 12:30 | NUR ---
PT HAVING PERIODS OF LOW HEART RATE, RANGE IN LOW 40'S TO LOW 50'S. DENIES COMPLAINTS. AWAKE, WITH PERIODS OF RESTING QUIETLY WITH EYES CLOSED. PT STATES THIS IS HER SLEEP PATTERN, STAYING AWAKE UNTIL EARLY AM, THEN SLEEPING A FEW HOURS, AND NAPPING THROUGHOUT THE DAY. PT HAD HOME MEDS INSTRUCTED BY BRIDGE MAINTENANCE WORKER RN ON ARRIVAL TO [facility] [place], INCLUDING METOPROLOL [address] MOY, REPORT GIVEN. STATES HE WILL COME SEE PT.
[2019-03-30] MEDS ORDERED: RT-ALBUTEROL SULF 2.5 MG/3 ML PRE-MIX VIAL IH PRN (13:00)
[2019-03-30] MEDS ORDERED: RT-ALBUTEROL SULF 2.5 MG/3 ML PRE-MIX VIAL INH PRN (13:00)
[2019-03-30] MEDS ORDERED: NON-FORMULARY MEDICATION 1 EA EA (Potassium Gluconate (Potassium) 99 MG) PO PRN (13:00)
[2019-03-30] MEDS ORDERED: ACETAMINOPHEN 325 MG TABLET PO PRN (13:00)
--- NOTE | 2019-03-30 13:05 | NUR ---
DR MOY HAS NOT BEEN TO SEE PT YET. PT NOW HAVING OCCASIONAL LONGER INTERVALS BETWEEN HEART BEATS AND REMAINS IN A-FIB, SHE HAS BEEN THROUGHOUT RECOVERY ON SDC. CONTACTED AIRBRUSH ARTIST TECHNICAL, DR MOY STATES HE WILL BE HERE SOON.
--- NOTE | 2019-03-30 13:20 | NUR ---
DR MOY HERE TO SEE PT. DISCUSSED WITH PT STAYING OVERNIGHT FOR OBSERVATION. PT AND FAMILY AGREED WITH THIS PLAN.
--- NOTE | 2019-03-30 14:23 | NUR ---
TO ICU 10 PER CART. REPORT TO Ruslan ANDREWS RN AND CARE OF PT TRANSFERRED TO ICU.
[2019-03-30 20:48] LABS: BILIRUBIN,URINE NEGATIVE (NEGATIVE); CLARITY,URINE SLIGHTLY CLOUDY; COLOR,URINE YELLOW; GLUCOSE, URINE (UA) NEGATIVE (NEGATIVE); KETONES,URINE NEGATIVE (NEGATIVE); LEUKOCYTE ESTERASE ,URINE 3+ (NEGATIVE); NITRITE,URINE POSITIVE (NEGATIVE); PH,URINE 6 (5-9); PROTEIN,URINE 2+ (NEGATIVE); UROBILINOGEN,URINE 4 MG/DL (NORMAL)
[2019-03-30 20:59] LABS: BACTERIA,URINE LARGE /HPF; WBC,URINE TNTC /HPF
[2019-03-30] MEDS ORDERED: DILTIAZEM 120 MG (CARDIZEM CD) CAP PO SCH (21:00)
[2019-03-30] MEDS: cloNIDine 0.1 MG (CATAPRES) TAB PO SCH (21:44)
[2019-03-30] MEDS: APIXABAN 5 MG (ELIQUIS) TABLET PO SCH (21:44)
[2019-03-30] MEDS: lisINopril 20 MG (PRINIVIL) TABLET PO SCH (21:45)
--- NOTE | 2019-03-30 21:56 | NUR ---
ORDER RECEIVED FROM DR. MOY TO HOLD TONIGHT'S DOSE OF PO CARDIZEM. PT ALSO REFUSING MEDICATION FROM OUR OMNICELL AND TOOK HER OWN MEDICATION FROM HOME; 0.1 MG CATAPRES, 5 MG ELIQUIS, AND 20 MG ZESTRIL. THIS RN INFORMED PT THAT WE WILL SEND HER MEDICATIONS DOWN TO PHARMACY IN AM TO BE VERIFIED SO WE CAN SCAN THEM INTO COMPUTER.
[2019-03-31 01:29] VITALS: BP 147/54
[2019-03-31] MEDS ORDERED: LEVOTHYROXINE 100 MCG (LEVOTHROID) TAB PO SCH (06:30)
[2019-03-31 06:50] VITALS: BP 153/66
[2019-03-31 07:00] VITALS: BP 153/66
--- NOTE | 2019-03-31 08:27 | Cardiology Progress Note ---
Subjective Date Seen by Provider: Mar 31, 2019 Time Seen by Provider: 08:25 Subjective/Events-last exam Patient is feeling better, heart rate is better. Review of Systems General: No Chills, No Night Sweats, No Fatigue, No Malaise, No Appetite, No Other HEENT: No Head Aches, No Visual Changes, No Eye Pain, No Ear Pain, No Dysphasia, No Sinus Congestion, No Post Nasal Drip, No Sore Throat, No Other Pulmonary: No Dyspnea, No Cough, No Pleuritic Chest Pain, No Other Cardiovascular: No: Chest Pain, Palpitations, Orthopnea, Paroxysmal Noc. Dyspnea, Edema, Lt Headedness, Other Objective-Cardiology Exam Last Set of Vital Signs Vital Signs 03/30/19 03/31/19 16:00 06:50 Temp 97.0 Pulse 60 Resp 16 B/P (MAP) 153/66 (95) Pulse Ox 94 O2 Delivery Room Air O2 Flow Rate 3.00 Capillary Refill : I&O Intake and Output 03/31/19 00:00 Intake Total 1150 ml Output Total 400 ml Balance 750 ml Intake Oral 150 ml IV Total 1000 ml Output Urine Total 400 ml Daily Weight Change No General: Alert, Oriented X3, Cooperative HEENT: Atraumatic, PERRLA Neck: Supple, No JVD, No Thyromegaly Lungs: Clear to Auscultation, Normal Air Movement Heart: Normal S1, Normal S2, No Murmurs, Other Abdomen: Normal Bowel Sounds, Soft, No Tenderness, No Hepatosplenomegaly, No Masses Extremities: No Clubbing, No Cyanosis, No Edema, Normal Pulses, No Tenderness/Swelling Skin: No Rashes, No Breakdown, No Significant Lesion Neuro: Normal Gait, Normal Speech, Strength at 5/5 X4 Ext, Normal Tone, Sensation Intact Psych/Mental Status: Mental Status NL, Mood NL Results Lab Laboratory Tests 03/30/19 08:53 A/P-Cardiology Admission Diagnosis Persistent atrial fibrillation Hypertension Hyperlipidemia Generalized fatigue Assessment/Plan Persistent atrial fibrillation, failed to attempt for cardioversion, became bradycardic yesterday, I did not change any of her medication, I am concerned about her underlying bradycardia. I will consult Dr. Perez for evaluation Hypertension, controlled on current medication monitor blood pressure Generalized fatigue and shortness of breath Hyperlipidemia. Clinical Quality Measures DVT/VTE Risk/Contraindication: Risk Factor Score Per Nursin RFS Level Per Nursing on Admit: 2=Moderate SHELDON MOY MD Mar 31, 2019 08:27
[2019-03-31] MEDS ORDERED: diphenhydrAMINE 25 MG TAB (BENADRYL) PO PRN (09:00)
--- NOTE | 2019-03-31 09:27 | Electrophysiology Consultation ---
HPI-Cardiology Cardiology Consultation: Date of Consultation 03/31/19 Date of Admission Attending Physician Aroldo Moise MD Admitting Physician Rl Sales MD Consulting Physician Connor PEREZ MD HPI: Time Seen by a Provider: 09:26 Chief Complaint: atrial fibrillation this is a 73-year-old lady with history of persistent atrial fibrillation. She denies any significant past cardiac history. She has been taking oral anti- coagulation therapy. Dr. Moise performed a transesophageal echocardiogram and performed cardioversion which was unsuccessful. She became bradycardic and was admitted overnight for bradycardia. Lowest heart rate was in the 30s. Review of Systems-Cardiology Review of Systems Constitutional: As described under HPI; No As described under HPI, No no symptoms reported, No chills, No fever, No lightheadedness Eyes: No As described under HPI, No no symptoms reported, No blindness, No blurred vision, No contact lenses, No drainage, No decreased acuity, No foreign body sensation, No pain, No vision change Ears/Nose/Throat: No As described under HPI, No no symptoms reported, No chronic hearing loss, No ear discharge, No ear pain, No nasal drainage, No ulcerations Respiratory: No no symptoms reported; As described under HPI; No As described under HPI, No cough, No orthopnea, No shortness of breath, No SOB with excertion Cardiovascular: No no symptoms reported; As described under HPI; No As described under HPI, No chest pain, No edema; irregular heart rate; No lightheadedness; palpitations Gastrointestinal: No no symptoms reported, No As described under HPI, No abdomen distended, No abdominal pain, No blood streaked bowels, No constipation, No diarrhea, No nausea, No vomiting, No stool coloration changes Genitourinary: No As described under HPI, No burning, No dysuria, No discharge, No frequency, No flank pain, No hematuria, No urgency : Yes : No Skin: No rash, No skin related problems, No ulcerations Psychiatric/Neurological: No anxiety, No depression, No seizure, No focal weakness, No syncope Hematologic: No bleeding abnormalities PIV-Etwecw-Rfjuni Hx Patient Social History Alcohol Use: Denies Use Recreational Drug Use: No Smoking Status: Never a Smoker 2nd Hand Smoke Exposure: No Recent Foreign Travel: No Recent Infectious Disease Expo: No Physical Abuse Screen: No Sexual Abuse: No Immunizations Up To Date Tetanus Booster (TDap): Unknown Date of Pneumonia Vaccine: May 03, 2018 Past Medical History PMH As described under Assessment. Allergies and Home Medications Allergies Coded Allergies: latex (Verified Allergy, Unknown, 12/26/18) Uncoded Allergies: SULFA (Allergy, Unknown, 12/26/18) Home Medications Acetaminophen 325 Mg Tablet, 650 MG PO Q8H PRN for PAIN-MILD, (Reported) Albuterol Sulfate 2.5 Mg/3 Ml Vial.neb, 2.5 MG NEB Q6H PRN for SHORTNESS OF BREATH, (Reported) Albuterol Sulfate 18 Gm Hfa.aer.ad, 2 PUFF INH Q6H PRN for SHORTNESS OF BREATH, (Reported) Apixaban 5 Mg Tablet, 5 MG PO BID, (Reported) Clonidine HCl 0.1 Mg Tablet, 0.1 MG PO BID, (Reported) Diltiazem HCl 120 Mg Cap.er.24h, 120 MG PO HS, (Reported) Diphenhydramine HCl 25 Mg Capsule, 25 MG PO DAILY PRN for allergy symptoms, (Reported) Dronedarone HCl 400 Mg Tablet, 400 MG PO BID Prescribed by: Connor PEREZ on 03/31/19 0938 Furosemide 40 Mg Tablet, 40 MG PO DAILY PRN for SWELLING, (Reported) Levothyroxine Sodium 100 Mcg Tablet, 100 MCG PO DAILY, (Reported) Lisinopril 20 Mg Tablet, 20 MG PO BID, (Reported) Naproxen Sodium 220 Mg Tablet, 440 MG PO Q8H PRN for PAIN-MILD, (Reported) Potassium Gluconate 99 Mg Tablet, 99 MG PO DAILY PRN for WHEN TAKING FUROSEMIDE, (Reported) Patient Home Medication List Home Medication List Reviewed: Yes Physical Exam-Cardiology Physical Exam Vital Signs/I&O 03/31/19 03/31/19 03/31/19 03/31/19 01:00 01:29 04:00 06:50 Temp 98.8 97.0 Pulse 74 70 60 Resp 18 16 B/P (MAP) 147/54 (85) 153/66 (95) Pulse Ox 96 95 94 O2 Delivery Room Air Room Air Room Air 03/31/19 03/31/19 03/31/19 03/31/19 07:00 07:00 08:00 08:00 Pulse 70 64 57 Resp 18 18 B/P (MAP) 153/66 (95) Pulse Ox 95 O2 Delivery Room Air Room Air Room Air 03/31/19 03/31/19 03/31/19 03/31/19 09:00 09:00 10:00 12:00 Temp 97.4 Pulse 62 60 Resp 14 21 Pulse Ox 96 O2 Delivery Room Air Room Air Room Air 03/31/19 00:00 Intake Total 1150 ml Output Total 400 ml Balance 750 ml Capillary Refill : Constitutional: appears stated age, AAO x 3; No apparent distress; well- developed, well-nourished HEENT: PERRL; No discharge; hearing is well preserved, oral hygience is good; No ulceration, No xanthelasmas are seen Neck: No carotid bruit; carotid pulses are 2 + bilaterally Respiratory: No accessory muscle use, No respiratory distress, No chest tender, No chest expansion is symmetric; chest is bilaterally symmetric; No lungs clear to percussion; lungs clear to auscultation; No crackles, No rhonchi, No rales, No stridor, No wheezing, No pleural rub, No other Cardiovascular: No regular rate-rhythm; irregularly irregular; No extra beats, No parasternal heave is noted, No JVD, No edema, No bradycardia, No tachycardia, No point of maximal impulse, No cardiac thrills are palpable; S1 and S2; No gallop/S3, No gallop/S4, No diastolic murmur, No systolic murmur, No friction rub, No click, No other Gastrointestinal: No tender, No soft, No round, No distended, No pulsatile mass, No organomegaly, No guarding, No rebound, No tenderness, No hernia, No mass, No audible bowel sounds, No abnormal bowel sounds, No abdominal bruits, No spleenomegaly, No other Rectal: deferred Extremities: No normal range of motion, No non-tender, No normal inspection, No pedal edema, No calf tenderness, No normal capillary refill, No pelvis stable, No calf tenderness, No inflammation, No pedal edema, No slow capillary refill, No swelling, No other, No abrasion, No clubbing, No cyanosis, No ecchymosis, No laceration, No no lower extremity edema bilateral, No significant edema, No tenderness, No wound Neurologic/Psychiatric: no motor/sensory deficits, alert, normal mood/affect, oriented x 3, power is 5/5 both on sides Skin: No normal color; warm/dry; No cyanosis, No cool, No diaphoresis, No damp, No ecchymosis, No jaundice, No mottled, No pallor, No rash, No tattoos/piercings, No ulcerations, No rash on exposed areas, No ulcerations on exposed areas, No other Data Review Labs Laboratory Tests 03/30/19 20:30: Urine Color YELLOW, Urine Clarity SLIGHTLY CLOUDY, Urine pH 6, Urine Specific [place] 1.010L, Urine Protein 2+H, Urine Glucose (UA) NEGATIVE, Urine Ketones NEGATIVE, Urine Nitrite POSITIVEH, Urine Bilirubin NEGATIVE, Urine Urobilinogen 4H, Urine Leukocyte Esterase 3+H, Urine RBC (Auto) 4+H, Urine RBC NONE, Urine WBC TNTCH, Urine Crystals NONE, Urine Bacteria LARGEH, Urine Casts NONE, Urine Mucus NEGATIVE, Urine Culture Indicated YES ECG Impression ECG Initial ECG Impression: Atrial Fibrillation A/P-Cardiology Assessment/Admission Diagnosis AF with RVR Bradycardia (Tachycardia-bradycardia syndrome) Plan Discussed at length. She very likely has Tachybrady syndrome and may require PPM in the future; her heart rate was in the 30s overnight. I discussed about permanent pacemaker since BB and/or CCB are essential drug therapy. - DC Metoprolol - Continue Cardizem CD 120mg PO daily. - Start Multaq 400mg twice daily. - Event monitor x 30 days. - Continue Eliquis. - Follow with me for Cardiac EP x 2 weeks. - Follow with Dr Moise for Cardiology. Thank you for your consultation. Please call me if you have any questions. Marli Perez MD, FACP, FACC, FSCAI, FHRS, CCDS Interventional Cardiology Cardiac Electrophysiology Vascular Medicine and Endovascular Interventions Clinical Quality Measures DVT/VTE Risk/Contraindication: Risk Factor Score Per Nursin RFS Level Per Nursing on Admit: 2=Moderate Connor PEREZ MD Mar 31, 2019 09:27
[2019-03-31] MEDS ORDERED: DRON400T2 PO (09:38)
[2019-03-31] MEDS ORDERED: DRONEDARONE TABLET 400 MG TABLET PO ONE (10:30)
[2019-03-31] MEDS: APIXABAN 5 MG (ELIQUIS) TABLET PO SCH (10:40)
[2019-03-31] MEDS: cloNIDine 0.1 MG (CATAPRES) TAB PO SCH (10:40)
[2019-03-31] MEDS: lisINopril 20 MG (PRINIVIL) TABLET PO SCH (10:41)
== END 2019-03-31 12:25 | disposition home or self-care (01) ==
LOC: CATH 08:29 → SDC 11:07 → ICU 14:23 → CATH 03-31 12:25
PROVIDERS: ATTEND Internal Medicine Cardiovascular Disease
DX: I48.2 Chronic atrial fibrillation (principal); I34.0 Nonrheumatic mitral (valve) insufficiency; I11.0 Hypertensive heart disease with heart failure; I50.1 Left ventricular failure, unspecified; R00.2 Palpitations; J44.9 Chronic obstructive pulmonary disease, unspecified; E78.5 Hyperlipidemia, unspecified; Z88.2 Allergy status to sulfonamides; Z91.040 Latex allergy status; Z79.01 Long term (current) use of anticoagulants; Z79.899 Other long term (current) drug therapy; Z82.49 Family history of ischemic heart disease and other diseases of the circulatory system; Z83.511 Family history of glaucoma
CPT/HCPCS: 36415; 71045; 80053; 80061; 81000; 85027; 85610; 85730; 87077; 87081; 87088; 87186; 92960; 93005; 93312; 93320; 93325

== ENCOUNTER 2019-04-12 12:18 | Outpatient (RCR) | payer MEDICARE, MEDICAID ==
[~2019-04-12 12:18] MED LIST changes: +ACET325T49 PO; +APIX5TAB PO; +DILT120C53 PO; +DILT120C88 PO; -DILT120C94 PO; +DIPH-718 PO; +DRON400T2 PO; +NAPR220T66 PO
[2019-07-21] MEDS ORDERED: ATOR10TA66 PO (18:05)
[2019-07-22] MEDS ORDERED: TRAM-42 PO (09:00)
[2019-07-22] MEDS ORDERED: CEPH-507 PO (09:00)
== END 2019-07-11 | disposition home or self-care (01) ==
LOC: CARD 12:18
PROVIDERS: ATTEND Internal Medicine Interventional Cardiology
DX: I48.91 Unspecified atrial fibrillation (principal)

== ENCOUNTER 2019-07-07 08:56 | Day surgery (SDC) | payer MEDICARE, MEDICAID ==
[2019-07-07] MEDS ORDERED: NS IV 1000 ML 1,000 ML ONE (09:20)
[2019-07-07] MEDS ORDERED: NS IV 1000 ML 1,000 ML IV ONE (09:24)
[2019-07-07] MEDS ORDERED: MIDAZOLAM 5 MG/5 ML (VERSED) VIAL IV ONE (09:30)
[2019-07-07] MEDS ORDERED: fentaNYL INJECTION 100 MCG/2 ML AMP IV ONE (09:30)
--- NOTE | 2019-07-07 09:46 | NUR ---
EKG PERFORMED, PT IS IN SR, PROCEDURE CANCELLED
[2019-07-21] MEDS ORDERED: ATOR10TA66 PO (18:05)
[2019-07-22] MEDS ORDERED: CEPH-507 PO (09:00)
[2019-07-22] MEDS ORDERED: TRAM-42 PO (09:00)
--- OUTSIDE RECORDS SUMMARY | 2019-08-02 05:54 | XMS REPORT | Continuity of Care Document ---
Author Organization Unknown Address Unknown Phone Unavailable Allergies Active Description Code Type Severity Reaction Onset Reported/Identified Relationship to Patient Clinical Status Yes latex [id number] Drug Allergy Unknown N/A 12/26/2018 Yes SULFA SULFA Unknown N/A 12/26/2018 Medications There is no data. Problems Date Dx Coded Attending Type Code Diagnosis Diagnosed By 12/26/2018 XAVIER SAINZ MD, Ot D69 .6 THROMBOCYTOPENIA, UNSPECIFIED 12/26/2018 XAVIER SAINZ MD, Ot E03 .9 HYPOTHYROIDISM, UNSPECIFIED 12/26/2018 XAVIER SAINZ MD, Ot E83.42 HYPOMAGNESEMIA 12/26/2018 XAVIER SAINZ MD Ot E87 .2 ACIDOSIS 12/26/2018 XAVIER SAINZ MD, Ot E87 .6 HYPOKALEMIA 12/26/2018 XAVIER SAINZ MD Ot I11 .0 HYPERTENSIVE HEART DISEASE WITH HEART FA 12/26/2018 XAVIER SAINZ MD, Ot I48 .0 PAROXYSMAL ATRIAL FIBRILLATION 12/26/2018 XAVIER SAINZ MD Ot I50.31 ACUTE DIASTOLIC (CONGESTIVE) HEART FAILU 12/26/2018 XAVIER SAINZ MD, Ot I51 .3 INTRACARDIAC THROMBOSIS, NOT ELSEWHERE C 12/26/2018 XAVIER SAINZ MD, Ot J15 .9 UNSPECIFIED BACTERIAL PNEUMONIA 12/26/2018 XAVIER SAINZ MD, Ot J44 .0 CHRONIC OBSTRUCTIVE PULMON DISEASE W ACU 12/26/2018 XAVIER SAINZ MD, Ot J44 .1 CHRONIC OBSTRUCTIVE PULMONARY DISEASE W 12/26/2018 XAVIER SAINZ MD, Ot J98.11 ATELECTASIS 12/26/2018 XAVIER SAINZ MD, Ot M19.91 PRIMARY OSTEOARTHRITIS, UNSPECIFIED SITE 12/26/2018 XAVIER SAINZ MD Ot N28 .9 DISORDER OF KIDNEY AND URETER, UNSPECIFI 12/26/2018 XAIVER SAINZ MD, Ot Z79.01 NURSERY HAND (CURRENT) USE OF ANTICOAGULANT 12/26/2018 XAVIER SAINZ MD, Ot Z91.14 PATIENT'S OTHER NONCOMPLIANCE WITH MEDIC 12/30/2018 XAVIER SAINZ MD, Ot D69 .6 THROMBOCYTOPENIA, UNSPECIFIED 12/30/2018 XAVIER SAINZ MD Ot E03 .9 HYPOTHYROIDISM, UNSPECIFIED 12/30/2018 XAVIER SAINZ MD Ot E83.42 HYPOMAGNESEMIA 12/30/2018 XAVIER SAINZ MD Ot E87 .2 ACIDOSIS 12/30/2018 XAVIER SAINZ MD Ot E87 .6 HYPOKALEMIA 12/30/2018 XAVIER SAINZ MD Ot I09.89 OTHER SPECIFIED RHEUMATIC HEART DISEASES 12/30/2018 XAVIER SAINZ MD Ot I11 .0 HYPERTENSIVE HEART DISEASE WITH HEART FA 12/30/2018 XAVIER SAINZ MD Ot I48 .0 PAROXYSMAL ATRIAL FIBRILLATION 12/30/2018 XAVIER SAINZ MD Ot I50.31 ACUTE DIASTOLIC (CONGESTIVE) HEART FAILU 12/30/2018 XAVIER SAINZ MD Ot I51 .3 INTRACARDIAC THROMBOSIS, NOT ELSEWHERE C 12/30/2018 XAVIER SAINZ MD Ot J15 .9 UNSPECIFIED BACTERIAL PNEUMONIA 12/30/2018 XAVIER SAINZ MD, Ot J44 .0 CHRONIC OBSTRUCTIVE PULMON DISEASE W ACU 12/30/2018 XAVIER SAINZ MD, Ot J44 .1 CHRONIC OBSTRUCTIVE PULMONARY DISEASE W 12/30/2018 XAVIER SAINZ MD Ot J98.11 ATELECTASIS 12/30/2018 XAVIER SAINZ MD Ot M19.91 PRIMARY OSTEOARTHRITIS, UNSPECIFIED SITE 12/30/2018 XAVIER SAINZ MD Ot N28 .9 DISORDER OF KIDNEY AND URETER, UNSPECIFI 12/30/2018 XAVIER SAINZ MD Ot Z79.01 NURSERY HAND (CURRENT) USE OF ANTICOAGULANT 12/30/2018 XAVIER SAINZ MD Ot Z91.14 PATIENT'S OTHER NONCOMPLIANCE WITH MEDIC 12/31/2018 XAVIER SAINZ MD Ot E03 .9 HYPOTHYROIDISM, UNSPECIFIED 12/31/2018 XAVIER SAINZ MD Ot E83.42 HYPOMAGNESEMIA 12/31/2018 XAVIER SAINZ MD Ot E87 .2 ACIDOSIS 12/31/2018 XAVIER SAINZ MD Ot E87 .6 HYPOKALEMIA 12/31/2018 XAVIER SAINZ MD Ot I09.89 OTHER SPECIFIED RHEUMATIC HEART DISEASES 12/31/2018 XAVIER SAINZ MD Ot I11 .0 HYPERTENSIVE HEART DISEASE WITH HEART FA 12/31/2018 XAVIER SAINZ MD Ot I48 .0 PAROXYSMAL ATRIAL FIBRILLATION 12/31/2018 XAVIER SAINZ MD Ot I50.31 ACUTE DIASTOLIC (CONGESTIVE) HEART FAILU 12/31/2018 XAVIER SAINZ MD Ot J15 .9 UNSPECIFIED BACTERIAL PNEUMONIA 12/31/2018 XAVIER SAINZ MD Ot J44 .0 CHRONIC OBSTRUCTIVE PULMON DISEASE W ACU 12/31/2018 XAVIER SAINZ MD Ot J44 .1 CHRONIC OBSTRUCTIVE PULMONARY DISEASE W 12/31/2018 XAVIER SAINZ MD Ot J98.11 ATELECTASIS 12/31/2018 XAVIER SAINZ MD Ot M19.91 PRIMARY OSTEOARTHRITIS, UNSPECIFIED SITE 12/31/2018 XAVIER SAINZ MD Ot Z79.01 NURSERY HAND (CURRENT) USE OF ANTICOAGULANT 12/31/2018 XAVIER SAINZ MD Ot Z91.14 PATIENT'S OTHER NONCOMPLIANCE WITH MEDIC 12/31/2018 XAVIER SAINZ MD Ot E03 .9 HYPOTHYROIDISM, UNSPECIFIED 12/31/2018 XAVIER SAINZ MD Ot E83.42 HYPOMAGNESEMIA 12/31/2018 XAVIER SAINZ MD Ot E87 .2 ACIDOSIS 12/31/2018 XAVIER SAINZ MD Ot E87 .6 HYPOKALEMIA 12/31/2018 XAVIER SAINZ MD Ot I09.89 OTHER SPECIFIED RHEUMATIC HEART DISEASES 12/31/2018 XAVIER SAINZ MD Ot I11 .0 HYPERTENSIVE HEART DISEASE WITH HEART FA 12/31/2018 XAVIER SAINZ MD Ot I48 .0 PAROXYSMAL ATRIAL FIBRILLATION 12/31/2018 XAVIER SAINZ MD Ot I50.31 ACUTE DIASTOLIC (CONGESTIVE) HEART FAILU 12/31/2018 XAVIER SAINZ MD Ot J15 .9 UNSPECIFIED BACTERIAL PNEUMONIA 12/31/2018 XAVIER SAINZ MD Ot J44 .0 CHRONIC OBSTRUCTIVE PULMON DISEASE W ACU 12/31/2018 XAVIER SAINZ MD Ot J44 .1 CHRONIC OBSTRUCTIVE PULMONARY DISEASE W 12/31/2018 XAVIER SAINZ MD Ot J98.11 ATELECTASIS 12/31/2018 XAVIER SAINZ MD Ot M19.91 PRIMARY OSTEOARTHRITIS, UNSPECIFIED SITE 12/31/2018 XAVIER SAINZ MD Ot Z79.01 NURSERY HAND (CURRENT) USE OF ANTICOAGULANT 12/31/2018 XAVIER SAINZ MD Ot Z91.14 PATIENT'S OTHER NONCOMPLIANCE WITH MEDIC 12/31/2018 XAVIER SAINZ MD Ot E03 .9 HYPOTHYROIDISM, UNSPECIFIED 12/31/2018 XAVIER SAINZ MD Ot E83.42 HYPOMAGNESEMIA 12/31/2018 XAVIER SAINZ MD Ot E87 .2 ACIDOSIS 12/31/2018 XAVIER SAINZ MD Ot E87 .6 HYPOKALEMIA 12/31/2018 XAVIER SAINZ MD Ot I09.89 OTHER SPECIFIED RHEUMATIC HEART DISEASES 12/31/2018 XAVIER SAINZ MD Ot I11 .0 HYPERTENSIVE HEART DISEASE WITH HEART FA 12/31/2018 XAVIER SAINZ MD Ot I48 .0 PAROXYSMAL ATRIAL FIBRILLATION 12/31/2018 XAVIER SAINZ MD Ot I50.31 ACUTE DIASTOLIC (CONGESTIVE) HEART FAILU 12/31/2018 XAVIER SAINZ MD Ot J15 .9 UNSPECIFIED BACTERIAL PNEUMONIA 12/31/2018 XAVIER SAINZ MD Ot J44 .0 CHRONIC OBSTRUCTIVE PULMON DISEASE W ACU 12/31/2018 XAVIER SAINZ MD, Ot J44 .1 CHRONIC OBSTRUCTIVE PULMONARY DISEASE W 12/31/2018 XAVIER SAINZ MD Ot J98.11 ATELECTASIS 12/31/2018 XAVIER SAINZ MD Ot M19.91 PRIMARY OSTEOARTHRITIS, UNSPECIFIED SITE 12/31/2018 XAVIER SAINZ MD Ot Z79.01 ALF (CURRENT) USE OF ANTICOAGULANT 12/31/2018 XAVIER SAINZ MD Ot Z91.14 PATIENT'S OTHER NONCOMPLIANCE WITH MEDIC 12/31/2018 XAVIER SAINZ MD Ot E03 .9 HYPOTHYROIDISM, UNSPECIFIED 12/31/2018 XAVIER SAINZ MD Ot E83.42 HYPOMAGNESEMIA 12/31/2018 XAVIER SAINZ MD Ot E87 .2 ACIDOSIS 12/31/2018 XAVIER SAINZ MD Ot E87 .6 HYPOKALEMIA 12/31/2018 XAVIER SAINZ MD Ot I09.89 OTHER SPECIFIED RHEUMATIC HEART DISEASES 12/31/2018 XAVIER SAINZ MD Ot I11 .0 HYPERTENSIVE HEART DISEASE WITH HEART FA 12/31/2018 XAVIER SAINZ MD Ot I48 .0 PAROXYSMAL ATRIAL FIBRILLATION 12/31/2018 XAVIER SAINZ MD Ot I50.31 ACUTE DIASTOLIC (CONGESTIVE) HEART FAILU 12/31/2018 XAVIER SAINZ MD Ot J15 .9 UNSPECIFIED BACTERIAL PNEUMONIA 12/31/2018 XAVIER SAINZ MD Ot J44 .0 CHRONIC OBSTRUCTIVE PULMON DISEASE W ACU 12/31/2018 XAVIER SAINZ MD Ot J44 .1 CHRONIC OBSTRUCTIVE PULMONARY DISEASE W 12/31/2018 XAVIER SAINZ MD Ot J98.11 ATELECTASIS 12/31/2018 XAVIER SAINZ MD Ot M19.91 PRIMARY OSTEOARTHRITIS, UNSPECIFIED SITE 12/31/2018 XAVIER SAINZ MD Ot Z79.01 ALF (CURRENT) USE OF ANTICOAGULANT 12/31/2018 XAVIER SAINZ MD Ot Z91.14 PATIENT'S OTHER NONCOMPLIANCE WITH MEDIC 01/26/2019 SHELDON MOY MD Ot I11. 0 HYPERTENSIVE HEART DISEASE WITH HEART FA 01/26/2019 SHELDON MOY MD Ot I34. 0 NONRHEUMATIC MITRAL (VALVE) INSUFFICIENC 01/26/2019 SHELDON MOY MD Ot I48. 0 PAROXYSMAL ATRIAL FIBRILLATION 01/26/2019 SHELDON MOY MD Ot I48. 2 CHRONIC ATRIAL FIBRILLATION 01/26/2019 SHELDON MOY MD Ot I50. 9 HEART FAILURE, UNSPECIFIED 02/14/2019 SHELDON MOY MD Ot I11. 0 HYPERTENSIVE HEART DISEASE WITH HEART FA 02/14/2019 SHELDON MOY MD Ot I34. 0 NONRHEUMATIC MITRAL (VALVE) INSUFFICIENC 02/14/2019 SHELDON MOY MD Ot I48. 0 PAROXYSMAL ATRIAL FIBRILLATION 02/14/2019 SHELDON MOY MD Ot I48. 2 CHRONIC ATRIAL FIBRILLATION 02/14/2019 SHELDON MOY MD Ot I50. 9 HEART FAILURE, UNSPECIFIED 02/17/2019 SHELDON MOY MD Ot I11. 0 HYPERTENSIVE HEART DISEASE WITH HEART FA 02/17/2019 SHELDON MOY MD Ot I34. 0 NONRHEUMATIC MITRAL (VALVE) INSUFFICIENC 02/17/2019 SHELDON MOY MD Ot I48. 0 PAROXYSMAL ATRIAL FIBRILLATION 02/17/2019 SHELDON MOY MD Ot I48. 2 CHRONIC ATRIAL FIBRILLATION 02/17/2019 SHELDON MOY MD Ot I50. 9 HEART FAILURE, UNSPECIFIED 03/30/2019 SHELDON MOY MD Ot I11. 0 HYPERTENSIVE HEART DISEASE WITH HEART FA 03/30/2019 SHELDON MOY MD Ot I34. 0 NONRHEUMATIC MITRAL (VALVE) INSUFFICIENC 03/30/2019 SHELDON MOY MD Ot I48. 0 PAROXYSMAL ATRIAL FIBRILLATION 03/30/2019 SHELDON MOY MD Ot I48. 2 CHRONIC ATRIAL FIBRILLATION 03/30/2019 SHELDON MOY MD Ot I50. 9 HEART FAILURE, UNSPECIFIED 03/31/2019 SHELDON MOY MD Ot E78. 5 HYPERLIPIDEMIA, UNSPECIFIED 03/31/2019 SHELDON MOY MD Ot I11. 0 HYPERTENSIVE HEART DISEASE WITH HEART FA 03/31/2019 SHELDON MOY MD Ot I34. 0 NONRHEUMATIC MITRAL (VALVE) INSUFFICIENC 03/31/2019 SHELDON MOY MD Ot I48. 2 CHRONIC ATRIAL FIBRILLATION 03/31/2019 SHELDON MOY MD Ot I50. 1 LEFT VENTRICULAR FAILURE, UNSPECIFIED 03/31/2019 SHELDON MOY MD Ot J44. 9 CHRONIC OBSTRUCTIVE PULMONARY DISEASE, U 03/31/2019 SHELDON MOY MD Ot R00. 2 PALPITATIONS 03/31/2019 SHELDON MOY MD Ot Z79. 01 NURSERY HAND (CURRENT) USE OF ANTICOAGULANT 03/31/2019 SHELDON MOY MD Ot Z79.899 OTHER ALF (CURRENT) DRUG THERAPY 03/31/2019 SHELDON MOY MD Ot Z82. 49 FAMILY HX OF ISCHEM HEART DIS AND OTH DI 03/31/2019 SHELDON MOY MD Ot Z83.511 FAMILY HISTORY OF GLAUCOMA 03/31/2019 SHELDON MOY MD Ot Z88. 2 ALLERGY STATUS TO SULFONAMIDES STATUS 03/31/2019 SHELDON MOY MD Ot Z91.040 LATEX ALLERGY STATUS 06/17/2019 SHELDON MOY MD Ot I11. 0 HYPERTENSIVE HEART DISEASE WITH HEART FA 06/17/2019 SHELDON MOY MD Ot I34. 0 NONRHEUMATIC MITRAL (VALVE) INSUFFICIENC 06/17/2019 SHELDON MOY MD Ot I48. 0 PAROXYSMAL ATRIAL FIBRILLATION 06/17/2019 SHELDON MOY MD Ot I48. 2 CHRONIC ATRIAL FIBRILLATION 06/17/2019 SHELDON MOY MD Ot I50. 9 HEART FAILURE, UNSPECIFIED 07/07/2019 SHELDON MOY MD Ot I11. 0 HYPERTENSIVE HEART DISEASE WITH HEART FA 07/07/2019 SHELDON MOY MD Ot I34. 0 NONRHEUMATIC MITRAL (VALVE) INSUFFICIENC 07/07/2019 SHELDON MOY MD Ot I48. 0 PAROXYSMAL ATRIAL FIBRILLATION 07/07/2019 SHELDON MOY MD Ot I48. 2 CHRONIC ATRIAL FIBRILLATION 07/07/2019 SHELDON MOY MD Ot I50. 9 HEART FAILURE, UNSPECIFIED 07/07/2019 Connor PALM MD Ot I48 .1 PERSISTENT ATRIAL FIBRILLATION 07/11/2019 Connor PALM MD Ot I48 .1 PERSISTENT ATRIAL FIBRILLATION 07/11/2019 Connor PALM MD Ot I48.91 UNSPECIFIED ATRIAL FIBRILLATION 07/12/2019 Connor PALM MD Ot I48.91 UNSPECIFIED ATRIAL FIBRILLATION 07/21/2019 SHELDON MOY MD Ot I11. 0 HYPERTENSIVE HEART DISEASE WITH HEART FA 07/21/2019 SHELDON MOY MD Ot I34. 0 NONRHEUMATIC MITRAL (VALVE) INSUFFICIENC 07/21/2019 SHELDON MOY MD Ot I48. 0 PAROXYSMAL ATRIAL FIBRILLATION 07/21/2019 FARZANEH PARKER, SHELDON Wade Ot I48. 2 CHRONIC ATRIAL FIBRILLATION 07/21/2019 FARZANEH PARKER, SHELDON Wade Ot I50. 9 HEART FAILURE, UNSPECIFIED 07/21/2019 Connor PALM MD Ot I48 .1 PERSISTENT ATRIAL FIBRILLATION * DO NOT 07/22/2019 Connor PALM MD Ot I11 .0 HYPERTENSIVE HEART DISEASE WITH HEART FA 07/22/2019 Connor PALM MD Ot I34 .0 NONRHEUMATIC MITRAL (VALVE) INSUFFICIENC 07/22/2019 Connor PALM MD Ot I48 .0 PAROXYSMAL ATRIAL FIBRILLATION 07/22/2019 Connor PALM MD, Ot I48.19 OTHER PERSISTENT ATRIAL FIBRILLATION 07/22/2019 Connor PALM MD, Ot I49 .5 SICK SINUS SYNDROME 07/22/2019 Connor PALM MD, Ot I50 .9 HEART FAILURE, UNSPECIFIED 07/22/2019 Connor PALM MD Ot J44 .9 CHRONIC OBSTRUCTIVE PULMONARY DISEASE, U 07/22/2019 Connor PALM MD, Ot Z79.01 ALF (CURRENT) USE OF ANTICOAGULANT 07/22/2019 Connor PALM MD, Ot Z79.899 OTHER NURSERY HAND (CURRENT) DRUG THERAPY 07/22/2019 Connor PALM MD, Ot Z82.49 FAMILY HX OF ISCHEM HEART DIS AND OTH DI 07/22/2019 Connor PALM MD, Ot Z88 .2 ALLERGY STATUS TO SULFONAMIDES STATUS 07/22/2019 Connor PALM MD, Ot Z91.040 LATEX ALLERGY STATUS Procedures There is no data. Results Test Result Range LIPID PANEL - 11/30/18 15:24 CHOLESTEROL, TOTAL 230 mg/dL <200 HDL CHOLESTEROL 43 mg/dL >50 TRIGLYCERIDES 196 mg/dL <150 LDL-CHOLESTEROL 153 mg/dL (calc) NRG CHOL/HDLC RATIO 5.3 (calc) <5.0 NON HDL CHOLESTEROL 187 mg/dL (calc) <13 0 CMP - 11/30/18 15:24 GLUCOSE 83 mg/dL 65-99 UREA NITROGEN (BUN) 13 mg/dL 7-25 CREATININE 1.23 mg/dL 0.60-0.93 eGFR NON-AFR. IRISH 44 mL/min/1.73m2 > OR = 60 eGFR 51 mL/min/1.73m2 > OR = 60 BUN/CREATININE RATIO 11 (calc) 6-22 SODIUM 141 mmol/L 135-146 POTASSIUM 4.4 mmol/L 3.5-5.3 CHLORIDE 107 mmol/L 98-110 CARBON DIOXIDE 24 mmol/L 20-32 CALCIUM 9.9 mg/dL 8.6-10.4 PROTEIN, TOTAL 7.3 g/dL 6.1-8.1 ALBUMIN 4.1 g/dL 3.6-5.1 GLOBULIN 3.2 g/dL (calc) 1.9-3.7 ALBUMIN/GLOBULIN RATIO 1.3 (calc) 1.0-2. 5 BILIRUBIN, TOTAL 0.7 mg/dL 0.2-1.2 ALKALINE PHOSPHATASE 113 U/L 33-130 AST 24 U/L 10-35 ALT 12 U/L 6-29 TSH - 11/30/18 15:24 TSH 14.20 mIU/L 0.40-4.50 PT panel in platelet poor plasma by coag ulation assay - 12/26/18 15:12 Prothrombin time (PT) in platelet poor plasma by coagu lation assay 17.0 s 12.2-14.7 INR in platelet poor plasma or blood by coagulation as say 1.3 0.8-1.4 Activated partial thromboplastin time (a PTT) in platelet poor plasma bycoagulation assay - 12/26/18 15:12 Activated partial thromboplastin time (a PTT) in platelet poor plasma bycoagulation assay 72 s 24-35 Blood CBC with ordered manual differenti al panel - 12/26/18 15:12 Blood leukocytes automated count (number/volume) 5.0 10*3/uL 4.3-11.0 Blood erythrocytes automated count (number/volume) 4.32 10*6/uL 4.35-5.85 Venous blood hemoglobin measurement (mass/volume) 12.7 g/dL 11.5-16.0 Blood hematocrit (volume fraction) 40 % 35-52 Automated erythrocyte mean corpuscular volume 92 [ foz_us] 80-99 Automated erythrocyte mean corpuscular h emoglobin (mass per erythrocyte) 29 pg 25-34 Automated erythrocyte mean corpuscular h emoglobin concentration measurement (mass/volume) 32 g/dL 32-36 Automated erythrocyte distribution width ratio 16. 2 % 10.0- 14.5 Automated blood platelet count (count/volume) 151 10*3/uL 130-400 Automated blood platelet mean volume measurement 12.1 [foz_us] 7.4-10.4 Automated blood neutrophils/100 leukocytes 46 % 42-75 Automated blood lymphocytes/100 leukocytes 24 % 12-44 Blood monocytes/100 leukocytes 23 % NRG Automated blood eosinophils/100 leukocytes 2 % 0-10 Automated blood basophils/100 leukocytes 1 % 0-10 Blood neutrophils automated count (number/volume) 2.3 10*3 1.8-7.8 Blood lymphocytes automated count (number/volume) 1.2 10*3 1.0-4.0 Blood monocytes automated count (number/volume) 1. 3 10*3 0.0-1.0 Automated eosinophil count 0.1 10*3/uL 0 .0-0.3 Automated blood basophil count (count/volume) 0.1 10*3/uL 0.0-0.1 Manual blood segmented neutrophils/100 leukocytes 30 % NRG Blood band neutrophils/100 leukocytes 19 % NRG Manual blood lymphocytes/100 leukocytes 24 % NRG Manual eosinophils/100 leukocytes in nose 1 % NRG Manual blood basophils/100 leukocytes 2 % NRG Manual blood lymphocytes variant/100 leukocytes 1 % NRG Blood erythrocyte morphology finding identification NORMAL NR Whole blood basic metabolic panel - 12/02 01/19 15:12 Serum or plasma sodium measurement (moles/volume) 142 mmol/L 135-145 Serum or plasma potassium measurement (moles/volume) 3.4 mmol/L 3.6-5.0 Serum or plasma chloride measurement (moles/volume) 104 mmol/L 98-107 Carbon dioxide 22 mmol/L 21-32 Serum or plasma anion gap determination (moles/volume) 16 mmol/L 5-14 Serum or plasma urea nitrogen measurement (mass/volume ) 15 mg/dL 7-18 Serum or plasma creatinine measurement (mass/volume) 1.25 mg/dL 0.60-1.30 Serum or plasma urea nitrogen/creatinine mass ratio 12 NRG Serum or plasma creatinine measurement w ith calculation of estimated glomerular filtration rate 42 NRG Serum or plasma glucose measurement (mass/volume) 128 mg/dL 70-105 Serum or plasma calcium measurement (mass/volume) 9.1 mg/dL 8.5-10.1 TROPONIN T - 12/26/18 15:12 TROPONIN T 6 % <=10 PROBNP FS - 12/26/18 15:12 PROBNP FS 1323.0 pg/mL <75.0 Bacterial blood culture - 12/26/18 16:30 Bacterial blood culture NG NRG Bacterial blood culture - 12/26/18 17:15 Bacterial blood culture NG NRG Methicillin resistant Staphylococcus aur eus (MRSA) screening culture - 12/26/18 18:45 Methicillin resistant Staphylococcus aureus (MRSA) scr eening culture NEG NRG Complete blood count (CBC) with automate d white blood cell (WBC) differential - 12/27/18 02:51 Blood leukocytes automated count (number/volume) 3.7 10*3/uL 4.3-11.0 Blood erythrocytes automated count (number/volume) 4.73 10*6/uL 4.35-5.85 Venous blood hemoglobin measurement (mass/volume) 13.8 g/dL 11.5-16.0 Blood hematocrit (volume fraction) 42 % 35-52 Automated erythrocyte mean corpuscular volume 88 [ foz_us] 80-99 Automated erythrocyte mean corpuscular h emoglobin (mass per erythrocyte) 29 pg 25-34 Automated erythrocyte mean corpuscular h emoglobin concentration measurement (mass/volume) 33 g/dL 32-36 Automated erythrocyte distribution width ratio 16. 5 % 10.0- 14.5 Automated blood platelet count (count/volume) 165 10*3/uL 130-400 Automated blood platelet mean volume measurement 12.9 [foz_us] 7.4-10.4 Automated blood neutrophils/100 leukocytes 72 % 42-75 Automated blood lymphocytes/100 leukocytes 17 % 12-44 Blood monocytes/100 leukocytes 11 % 0-12 Automated blood eosinophils/100 leukocytes 0 % 0-10 Automated blood basophils/100 leukocytes 1 % 0-10 Blood neutrophils automated count (number/volume) 2.6 10*3 1.8-7.8 Blood lymphocytes automated count (number/volume) 0.6 10*3 1.0-4.0 Blood monocytes automated count (number/volume) 0. 4 10*3 0.0-1.0 Automated eosinophil count 0.0 10*3/uL 0 .0-0.3 Automated blood basophil count (count/volume) 0.0 10*3/uL 0.0-0.1 Comprehensive metabolic panel - 12/27/18 02:51 Serum or plasma sodium measurement (moles/volume) 139 mmol/L 135-145 Serum or plasma potassium measurement (moles/volume) 3.4 mmol/L 3.6-5.0 Serum or plasma chloride measurement (moles/volume) 104 mmol/L 98-107 Carbon dioxide 20 mmol/L 21-32 Serum or plasma anion gap determination (moles/volume) 15 mmol/L 5-14 Serum or plasma urea nitrogen measurement (mass/volume ) 18 mg/dL 7-18 Serum or plasma creatinine measurement (mass/volume) 1.28 mg/dL 0.60-1.30 Serum or plasma urea nitrogen/creatinine mass ratio 14 NRG Serum or plasma creatinine measurement w ith calculation of estimated glomerular filtration rate 41 NRG Serum or plasma glucose measurement (mass/volume) 189 mg/dL 70-105 Serum or plasma calcium measurement (mass/volume) 10.1 mg/dL 8.5-10.1 Serum or plasma total bilirubin measurement (mass/volu me) 0.6 mg/dL 0.1-1.0 Serum or plasma alkaline phosphatase shalini surement (enzymatic activity/volume) 152 U/L 40-136 Serum or plasma aspartate aminotransfera se measurement (enzymatic activity/volume) 24 U/L 5-34 Serum or plasma alanine aminotransferase measurement (enzymatic activity/volume) 13 U/L 0-55 Serum or plasma protein measurement (mass/volume) 7.7 g/dL 6.4-8.2 Serum or plasma albumin measurement (mass/volume) 4.0 g/dL 3.2-4.5 CALCIUM CORRECTED 10.1 mg/dL 8.5-10.1 Serum or plasma phosphate measurement (m ass/volume) - 12/27/18 02:51 Serum or plasma phosphate measurement (mass/volume) 2.4 mg/dL 2.3-4.7 Magnesium - 12/27/18 02:51 Magnesium 1.7 mg/dL 1.8-2.4 Blood lactic acid measurement (moles/vol ume) - 12/27/18 06:21 Blood lactic acid measurement (moles/volume) 1.33 mmol/L 0.50-2.00 Serum or plasma troponin i.cardiac measu rement (mass/volume) - 12/27/18 06:21 Serum or plasma troponin i.cardiac measurement (mass/v olume) < ng/mL <0.028 Serum or plasma lithium measurement (mol es/volume) - 12/27/18 06:21 BNP level 165.8 pg/mL <100.0 Arterial blood gas measurement - 9 06:30 Blood pCO2 30 mm[Hg] 35-45 Blood pO2 67 mm[Hg] 79-93 Arterial blood bicarbonate measurement (moles/volume) 21 mmol/L 23-27 Arterial blood base excess by calculation -2.5 mmo l/L -2.5-2.5 Arterial blood oxygen saturation measurement 95 % 94-100 * Inhaled oxygen flow rate N NRG Arterial blood pH measurement with patient temperature correction 7.45 7.37-7.43 Arterial blood carbon dioxide, total measurement (mole s/volume) 22.1 mmol/L 21.0-31.0 Body site LEFT RADIAL NRG Assessment of wrist artery patency prior to arterial p uncture POSITIVE NRG Setting of ventilation mode NO NR G Measurement of body temperature 96.4 NRG Complete urinalysis with reflex to cultu re - 12/27/18 07:30 Urine color determination YELLOW NRG Urine clarity determination SLIGHTLY CLOUDY NRG Urine pH measurement by test strip 5 5-9 Specific gravity of urine by test strip 1.015 1.016-1.022 Urine protein assay by test strip, semi-quantitative 2+ NEGATIVE Urine glucose detection by automated test strip NE GATIVE NEGATIVE Erythrocytes detection in urine sediment by light micr oscopy 5+ NEGATIVE Urine ketones detection by automated test strip NE GATIVE NEGATIVE Urine nitrite detection by test strip NEGATIVE NEGATIVE Urine total bilirubin detection by test strip NEGA TIVE NEGATIVE Urine urobilinogen measurement by automated test strip (mass/volume) NORMAL NORMAL Urine leukocyte esterase detection by dipstick 1+ NEGATIVE Automated urine sediment erythrocyte cou nt by microscopy (number/high power field) [HPF] NRG Automated urine sediment leukocyte count by microscopy (number/high power field) [HPF] NRG Bacteria detection in urine sediment by light microsco py NEGATIVE NRG Squamous epithelial cells detection in u rine sediment by light microscopy 2-5 NRG Crystals detection in urine sediment by light microsco py NONE NRG Casts detection in urine sediment by light microscopy PRESENT NRG Mucus detection in urine sediment by light microscopy NEGATIVE NRG Complete urinalysis with reflex to culture YES NRG Hyaline casts detection in urine sediment by light alejandra roscopy 10-25 NRG Bacterial urine culture - 12/27/18 07:30 Bacterial urine culture NG NRG Complete blood count (CBC) with automate d white blood cell (WBC) differential - 12/28/18 03:00 Blood leukocytes automated count (number/volume) 12.0 10*3/uL 4.3-11.0 Blood erythrocytes automated count (number/volume) 4.87 10*6/uL 4.35-5.85 Venous blood hemoglobin measurement (mass/volume) 14.5 g/dL 11.5-16.0 Blood hematocrit (volume fraction) 42 % 35-52 Automated erythrocyte mean corpuscular volume 88 [ foz_us] 80-99 Automated erythrocyte mean corpuscular h emoglobin (mass per erythrocyte) 30 pg 25-34 Automated erythrocyte mean corpuscular h emoglobin concentration measurement (mass/volume) 34 g/dL 32-36 Automated erythrocyte distribution width ratio 15. 8 % 10.0- 14.5 Automated blood platelet count (count/volume) 40 1 0*3/uL 130-400 Automated blood platelet mean volume measurement 12.2 [foz_us] 7.4-10.4 Automated blood neutrophils/100 leukocytes 88 % 42-75 Automated blood lymphocytes/100 leukocytes 7 % 12-44 Blood monocytes/100 leukocytes 5 % 0-12 Automated blood eosinophils/100 leukocytes 0 % 0-10 Automated blood basophils/100 leukocytes 0 % 0-10 Blood neutrophils automated count (number/volume) 9.5 10*3 1.8-7.8 Blood lymphocytes automated count (number/volume) 0.7 10*3 1.0-4.0 Blood monocytes automated count (number/volume) 0. 6 10*3 0.0-1.0 Automated eosinophil count 0.0 10*3/uL 0 .0-0.3 Automated blood basophil count (count/volume) 0.0 10*3/uL 0.0-0.1 Whole blood basic metabolic panel - 12/02 03/21 03:00 Serum or plasma sodium measurement (moles/volume) 135 mmol/L 135-145 Serum or plasma potassium measurement (moles/volume) 4.4 mmol/L 3.6-5.0 Serum or plasma chloride measurement (moles/volume) 102 mmol/L 98-107 Carbon dioxide 17 mmol/L 21-32 Serum or plasma anion gap determination (moles/volume) 16 mmol/L 5-14 Serum or plasma urea nitrogen measurement (mass/volume ) 27 mg/dL 7-18 Serum or plasma creatinine measurement (mass/volume) 1.60 mg/dL 0.60-1.30 Serum or plasma urea nitrogen/creatinine mass ratio 17 NRG Serum or plasma creatinine measurement w ith calculation of estimated glomerular filtration rate 32 NRG Serum or plasma glucose measurement (mass/volume) 180 mg/dL 70-105 Serum or plasma calcium measurement (mass/volume) 10.1 mg/dL 8.5-10.1 Serum or plasma phosphate measurement (m ass/volume) - 12/28/18 03:00 Serum or plasma phosphate measurement (mass/volume) 3.1 mg/dL 2.3-4.7 Magnesium - 12/28/18 03:00 Magnesium 2.2 mg/dL 1.8-2.4 Complete blood count (CBC) with automate d white blood cell (WBC) differential - 12/28/18 10:15 Blood leukocytes automated count (number/volume) 13.9 10*3/uL 4.3-11.0 Blood erythrocytes automated count (number/volume) 5.12 10*6/uL 4.35-5.85 Venous blood hemoglobin measurement (mass/volume) 14.9 g/dL 11.5-16.0 Blood hematocrit (volume fraction) 45 % 35-52 Automated erythrocyte mean corpuscular volume 87 [ foz_us] 80-99 Automated erythrocyte mean corpuscular h emoglobin (mass per erythrocyte) 29 pg 25-34 Automated erythrocyte mean corpuscular h emoglobin concentration measurement (mass/volume) 34 g/dL 32-36 Automated erythrocyte distribution width ratio 16. 2 % 10.0- 14.5 Automated blood platelet count (count/volume) 223 10*3/uL 130-400 Automated blood platelet mean volume measurement 12.8 [foz_us] 7.4-10.4 Automated blood neutrophils/100 leukocytes 89 % 42-75 Automated blood lymphocytes/100 leukocytes 7 % 12-44 Blood monocytes/100 leukocytes 5 % 0-12 Automated blood eosinophils/100 leukocytes 0 % 0-10 Automated blood basophils/100 leukocytes 0 % 0-10 Blood neutrophils automated count (number/volume) 12.3 10*3 1.8-7.8 Blood lymphocytes automated count (number/volume) 0.9 10*3 1.0-4.0 Blood monocytes automated count (number/volume) 0. 6 10*3 0.0-1.0 Automated eosinophil count 0.0 10*3/uL 0 .0-0.3 Automated blood basophil count (count/volume) 0.0 10*3/uL 0.0-0.1 Whole blood basic metabolic panel - 12/02 03/21 10:15 Serum or plasma sodium measurement (moles/volume) 136 mmol/L 135-145 Serum or plasma potassium measurement (moles/volume) 3.9 mmol/L 3.6-5.0 Serum or plasma chloride measurement (moles/volume) 103 mmol/L 98-107 Carbon dioxide 20 mmol/L 21-32 Serum or plasma anion gap determination (moles/volume) 13 mmol/L 5-14 Serum or plasma urea nitrogen measurement (mass/volume ) 32 mg/dL 7-18 Serum or plasma creatinine measurement (mass/volume) 1.56 mg/dL 0.60-1.30 Serum or plasma urea nitrogen/creatinine mass ratio 21 NRG Serum or plasma creatinine measurement w ith calculation of estimated glomerular filtration rate 33 NRG Serum or plasma glucose measurement (mass/volume) 173 mg/dL 70-105 Serum or plasma calcium measurement (mass/volume) 10.0 mg/dL 8.5-10.1 Complete blood count (CBC) with automate d white blood cell (WBC) differential - 12/29/18 03:00 Blood leukocytes automated count (number/volume) 20.7 10*3/uL 4.3-11.0 Blood erythrocytes automated count (number/volume) 4.92 10*6/uL 4.35-5.85 Venous blood hemoglobin measurement (mass/volume) 14.5 g/dL 11.5-16.0 Blood hematocrit (volume fraction) 43 % 35-52 Automated erythrocyte mean corpuscular volume 86 [ foz_us] 80-99 Automated erythrocyte mean corpuscular h emoglobin (mass per erythrocyte) 30 pg 25-34 Automated erythrocyte mean corpuscular h emoglobin concentration measurement (mass/volume) 34 g/dL 32-36 Automated erythrocyte distribution width ratio 16. 4 % 10.0- 14.5 Automated blood platelet count (count/volume) 256 10*3/uL 130-400 Automated blood platelet mean volume measurement 13.0 [foz_us] 7.4-10.4 Automated blood neutrophils/100 leukocytes 85 % 42-75 Automated blood lymphocytes/100 leukocytes 8 % 12-44 Blood monocytes/100 leukocytes 7 % 0-12 Automated blood eosinophils/100 leukocytes 0 % 0-10 Automated blood basophils/100 leukocytes 0 % 0-10 Blood neutrophils automated count (number/volume) 17.6 10*3 1.8-7.8 Blood lymphocytes automated count (number/volume) 1.7 10*3 1.0-4.0 Blood monocytes automated count (number/volume) 1. 4 10*3 0.0-1.0 Automated eosinophil count 0.0 10*3/uL 0 .0-0.3 Automated blood basophil count (count/volume) 0.0 10*3/uL 0.0-0.1 Whole blood basic metabolic panel - 12/02 04/21 03:00 Serum or plasma sodium measurement (moles/volume) 136 mmol/L 135-145 Serum or plasma potassium measurement (moles/volume) 4.4 mmol/L 3.6-5.0 Serum or plasma chloride measurement (moles/volume) 101 mmol/L 98-107 Carbon dioxide 21 mmol/L 21-32 Serum or plasma anion gap determination (moles/volume) 14 mmol/L 5-14 Serum or plasma urea nitrogen measurement (mass/volume ) 45 mg/dL 7-18 Serum or plasma creatinine measurement (mass/volume) 1.55 mg/dL 0.60-1.30 Serum or plasma urea nitrogen/creatinine mass ratio 29 NRG Serum or plasma creatinine measurement w ith calculation of estimated glomerular filtration rate 33 NRG Serum or plasma glucose measurement (mass/volume) 156 mg/dL 70-105 Serum or plasma calcium measurement (mass/volume) 10.0 mg/dL 8.5-10.1 Serum or plasma phosphate measurement (m ass/volume) - 12/29/18 03:00 Serum or plasma phosphate measurement (mass/volume) 3.5 mg/dL 2.3-4.7 Magnesium - 12/29/18 03:00 Magnesium 2.5 mg/dL 1.8-2.4 Blood manual differential performed dete ction - 12/29/18 03:00 Blood monocytes/100 leukocytes 10 % NRG Manual blood segmented neutrophils/100 leukocytes 82 % NRG Manual blood lymphocytes/100 leukocytes 7 % NRG Blood blasts/100 leukocytes 1 % NR G Complete blood count (CBC) with automate d white blood cell (WBC) differential - 12/30/18 05:50 Blood leukocytes automated count (number/volume) 12.1 10*3/uL 4.3-11.0 Blood erythrocytes automated count (number/volume) 4.71 10*6/uL 4.35-5.85 Venous blood hemoglobin measurement (mass/volume) 13.8 g/dL 11.5-16.0 Blood hematocrit (volume fraction) 42 % 35-52 Automated erythrocyte mean corpuscular volume 88 [ foz_us] 80-99 Automated erythrocyte mean corpuscular h emoglobin (mass per erythrocyte) 29 pg 25-34 Automated erythrocyte mean corpuscular h emoglobin concentration measurement (mass/volume) 33 g/dL 32-36 Automated erythrocyte distribution width ratio 16. 2 % 10.0- 14.5 Automated blood platelet count (count/volume) 215 10*3/uL 130-400 Automated blood platelet mean volume measurement 12.7 [foz_us] 7.4-10.4 Automated blood neutrophils/100 leukocytes 62 % 42-75 Automated blood lymphocytes/100 leukocytes 23 % 12-44 Blood monocytes/100 leukocytes 14 % 0-12 Automated blood eosinophils/100 leukocytes 0 % 0-10 Automated blood basophils/100 leukocytes 0 % 0-10 Blood neutrophils automated count (number/volume) 7.5 10*3 1.8-7.8 Blood lymphocytes automated count (number/volume) 2.8 10*3 1.0-4.0 Blood monocytes automated count (number/volume) 1. 7 10*3 0.0-1.0 Automated eosinophil count 0.0 10*3/uL 0 .0-0.3 Automated blood basophil count (count/volume) 0.0 10*3/uL 0.0-0.1 Whole blood basic metabolic panel - 12/03 05:50 Serum or plasma sodium measurement (moles/volume) 137 mmol/L 135-145 Serum or plasma potassium measurement (moles/volume) 4.6 mmol/L 3.6-5.0 Serum or plasma chloride measurement (moles/volume) 105 mmol/L 98-107 Carbon dioxide 25 mmol/L 21-32 Serum or plasma anion gap determination (moles/volume) 7 mmol/L 5-14 Serum or plasma urea nitrogen measurement (mass/volume ) 52 mg/dL 7-18 Serum or plasma creatinine measurement (mass/volume) 1.45 mg/dL 0.60-1.30 Serum or plasma urea nitrogen/creatinine mass ratio 36 NRG Serum or plasma creatinine measurement w ith calculation of estimated glomerular filtration rate 35 NRG Serum or plasma glucose measurement (mass/volume) 101 mg/dL 70-105 Serum or plasma calcium measurement (mass/volume) 9.1 mg/dL 8.5-10.1 Serum or plasma phosphate measurement (m ass/volume) - 12/30/18 05:50 Serum or plasma phosphate measurement (mass/volume) 3.1 mg/dL 2.3-4.7 Magnesium - 12/30/18 05:50 Magnesium 2.8 mg/dL 1.8-2.4 Automated blood complete blood count (he mogram) panel - 03/30/19 08:53 Blood leukocytes automated count (number/volume) 8.2 10*3/uL 4.3-11.0 Blood erythrocytes automated count (number/volume) 4.56 10*6/uL 4.35-5.85 Venous blood hemoglobin measurement (mass/volume) 13.3 g/dL 11.5-16.0 Blood hematocrit (volume fraction) 41 % 35-52 Automated erythrocyte mean corpuscular volume 91 [ foz_us] 80-99 Automated erythrocyte mean corpuscular h emoglobin (mass per erythrocyte) 29 pg 25-34 Automated erythrocyte mean corpuscular h emoglobin concentration measurement (mass/volume) 32 g/dL 32-36 Automated erythrocyte distribution width ratio 14. 9 % 10.0- 14.5 Automated blood platelet count (count/volume) 173 10*3/uL 130-400 Automated blood platelet mean volume measurement 12.3 [foz_us] 7.4-10.4 PT panel in platelet poor plasma by coag ulation assay - 03/30/19 08:53 Prothrombin time (PT) in platelet poor plasma by coagu lation assay 18.6 s 12.2-14.7 INR in platelet poor plasma or blood by coagulation as say 1.5 0.8-1.4 Activated partial thromboplastin time (a PTT) in platelet poor plasma bycoagulation assay - 03/30/19 08:53 Activated partial thromboplastin time (a PTT) in platelet poor plasma bycoagulation assay 48 s 24-35 Comprehensive metabolic panel - 03/30/19 08:53 Serum or plasma sodium measurement (moles/volume) 142 mmol/L 135-145 Serum or plasma potassium measurement (moles/volume) 3.6 mmol/L 3.6-5.0 Serum or plasma chloride measurement (moles/volume) 106 mmol/L 98-107 Carbon dioxide 25 mmol/L 21-32 Serum or plasma anion gap determination (moles/volume) 11 mmol/L 5-14 Serum or plasma urea nitrogen measurement (mass/volume ) 19 mg/dL 7-18 Serum or plasma creatinine measurement (mass/volume) 1.19 mg/dL 0.60-1.30 Serum or plasma urea nitrogen/creatinine mass ratio 16 NRG Serum or plasma creatinine measurement w ith calculation of estimated glomerular filtration rate 45 NRG Serum or plasma glucose measurement (mass/volume) 97 mg/dL 70-105 Serum or plasma calcium measurement (mass/volume) 10.4 mg/dL 8.5-10.1 Serum or plasma total bilirubin measurement (mass/volu me) 1.1 mg/dL 0.1-1.0 Serum or plasma alkaline phosphatase shalini surement (enzymatic activity/volume) 153 U/L 40-136 Serum or plasma aspartate aminotransfera se measurement (enzymatic activity/volume) 20 U/L 5-34 Serum or plasma alanine aminotransferase measurement (enzymatic activity/volume) 16 U/L 0-55 Serum or plasma protein measurement (mass/volume) 7.8 g/dL 6.4-8.2 Serum or plasma albumin measurement (mass/volume) 4.5 g/dL 3.2-4.5 CALCIUM CORRECTED 10.0 mg/dL 8.5-10.1 Lipid 1996 panel - 03/30/19 08:53 Serum or plasma triglyceride measurement (mass/volume) 136 mg/dL <150 Serum or plasma cholesterol measurement (mass/volume) 208 mg/dL < 200 Serum or plasma cholesterol in HDL measurement (mass/v olume) 44 mg/dL 40-60 Cholesterol in LDL [mass/volume] in serum or plasma by direct assay 146 mg/dL 1-129 Serum or plasma cholesterol in VLDL measurement (mass/ volume) 27 mg/dL 5-40 Methicillin resistant Staphylococcus aur eus (MRSA) screening culture - 03/30/19 08:53 Methicillin resistant Staphylococcus aureus (MRSA) scr eening culture NEG NRG Complete urinalysis with reflex to cultu re - 03/30/19 20:30 Urine color determination YELLOW NRG Urine clarity determination SLIGHTLY CLOUDY NRG Urine pH measurement by test strip 6 5-9 Specific gravity of urine by test strip 1.010 1.016-1.022 Urine protein assay by test strip, semi-quantitative 2+ NEGATIVE Urine glucose detection by automated test strip NE GATIVE NEGATIVE Erythrocytes detection in urine sediment by light micr oscopy 4+ NEGATIVE Urine ketones detection by automated test strip NE GATIVE NEGATIVE Urine nitrite detection by test strip POSITIVE NEGATIVE Urine total bilirubin detection by test strip NEGA TIVE NEGATIVE Urine urobilinogen measurement by automated test strip (mass/volume) 4 mg/dL NORMAL Urine leukocyte esterase detection by dipstick 3+ NEGATIVE Automated urine sediment erythrocyte cou nt by microscopy (number/high power field) NONE NRG Automated urine sediment leukocyte count by microscopy (number/high power field) TNTC NRG Bacteria detection in urine sediment by light microsco py LARGE NRG Crystals detection in urine sediment by light microsco py NONE NRG Casts detection in urine sediment by light microscopy NONE NRG Mucus detection in urine sediment by light microscopy NEGATIVE NRG Complete urinalysis with reflex to culture YES NRG Bacterial urine culture - 03/30/19 20:30 Bacterial urine culture [id number] NRG COLONY COUNT >100,000/ML NRG FTX;REPORTABLE SUSCEPTIBILITY REPORTED 04/01/19 11: 10 NRG FREE TEXT ENTRY 2 ID REPORTED 03/31/19 16:05 NRG Dirithromycin susceptibility test by dis k diffusion - 03/30/19 20:30 Gentamicin susceptibility test by minimum inhibitory c oncentration <= NRG Trimethoprim/sulfamethoxazole susceptibi lity test by minimum inhibitoryconcentration <= NRG Levofloxacin susceptibility test by minimum inhibitory concentration > NRG Ampicillin susceptibility test by minimum inhibitory c oncentration <= NRG Cefazolin susceptibility test by minimum inhibitory co ncentration <= NRG Ceftriaxone susceptibility test by minimum inhibitory concentration <= NRG Ciprofloxacin susceptibility test by minimum inhibitor y concentration > NRG Meropenem susceptibility test by minimum inhibitory co ncentration <= NRG Nitrofurantoin susceptibility test by mi nimum inhibitory concentration <= NRG Amoxicillin and clavulanate potassium susc ALEJANDRA = NRG Automated blood complete blood count (he mogram) panel - 07/21/19 09:00 Blood leukocytes automated count (number/volume) 9.0 10*3/uL 4.3-11.0 Blood erythrocytes automated count (number/volume) 4.25 10*6/uL 4.35-5.85 Venous blood hemoglobin measurement (mass/volume) 12.3 g/dL 11.5-16.0 Blood hematocrit (volume fraction) 39 % 35-52 Automated erythrocyte mean corpuscular volume 91 [ foz_us] 80-99 Automated erythrocyte mean corpuscular h emoglobin (mass per erythrocyte) 29 pg 25-34 Automated erythrocyte mean corpuscular h emoglobin concentration measurement (mass/volume) 32 g/dL 32-36 Automated erythrocyte distribution width ratio 14. 5 % 10.0- 14.5 Automated blood platelet count (count/volume) 188 10*3/uL 130-400 Automated blood platelet mean volume measurement 12.0 [foz_us] 7.4-10.4 PT panel in platelet poor plasma by coag ulation assay - 07/21/19 09:00 Prothrombin time (PT) in platelet poor plasma by coagu lation assay 15.0 s 12.2-14.7 INR in platelet poor plasma or blood by coagulation as say 1.1 0.8-1.4 Activated partial thromboplastin time (a PTT) in platelet poor plasma bycoagulation assay - 07/21/19 09:00 Activated partial thromboplastin time (a PTT) in platelet poor plasma bycoagulation assay 45 s 24-35 Comprehensive metabolic panel - 07/21/19 09:00 Serum or plasma sodium measurement (moles/volume) 141 mmol/L 135-145 Serum or plasma potassium measurement (moles/volume) 4.1 mmol/L 3.6-5.0 Serum or plasma chloride measurement (moles/volume) 109 mmol/L 98-107 Carbon dioxide 20 mmol/L 21-32 Serum or plasma anion gap determination (moles/volume) 12 mmol/L 5-14 Serum or plasma urea nitrogen measurement (mass/volume ) 27 mg/dL 7-18 Serum or plasma creatinine measurement (mass/volume) 1.60 mg/dL 0.60-1.30 Serum or plasma urea nitrogen/creatinine mass ratio 17 NRG Serum or plasma creatinine measurement w ith calculation of estimated glomerular filtration rate 32 NRG Serum or plasma glucose measurement (mass/volume) 93 mg/dL 70-105 Serum or plasma calcium measurement (mass/volume) 10.0 mg/dL 8.5-10.1 Serum or plasma total bilirubin measurement (mass/volu me) 0.4 mg/dL 0.1-1.0 Serum or plasma alkaline phosphatase shalini surement (enzymatic activity/volume) 228 U/L 40-136 Serum or plasma aspartate aminotransfera se measurement (enzymatic activity/volume) 40 U/L 5-34 Serum or plasma alanine aminotransferase measurement (enzymatic activity/volume) 37 U/L 0-55 Serum or plasma protein measurement (mass/volume) 7.3 g/dL 6.4-8.2 Serum or plasma albumin measurement (mass/volume) 4.2 g/dL 3.2-4.5 CALCIUM CORRECTED 9.8 mg/dL 8.5-10.1 Methicillin resistant Staphylococcus aur eus (MRSA) screening culture - 07/21/19 09:00 Methicillin resistant Staphylococcus aureus (MRSA) scr eening culture NEG NRG Automated blood complete blood count (he mogram) panel - 07/22/19 03:47 Blood leukocytes automated count (number/volume) 9.0 10*3/uL 4.3-11.0 Blood erythrocytes automated count (number/volume) 3.94 10*6/uL 4.35-5.85 Venous blood hemoglobin measurement (mass/volume) 11.5 g/dL 11.5-16.0 Blood hematocrit (volume fraction) 36 % 35-52 Automated erythrocyte mean corpuscular volume 91 [ foz_us] 80-99 Automated erythrocyte mean corpuscular h emoglobin (mass per erythrocyte) 29 pg 25-34 Automated erythrocyte mean corpuscular h emoglobin concentration measurement (mass/volume) 32 g/dL 32-36 Automated erythrocyte distribution width ratio 14. 4 % 10.0- 14.5 Automated blood platelet count (count/volume) 173 10*3/uL 130-400 Automated blood platelet mean volume measurement 12.2 [foz_us] 7.4-10.4 Comprehensive metabolic panel - 07/22/19 03:47 Serum or plasma sodium measurement (moles/volume) 137 mmol/L 135-145 Serum or plasma potassium measurement (moles/volume) 4.3 mmol/L 3.6-5.0 Serum or plasma chloride measurement (moles/volume) 110 mmol/L 98-107 Carbon dioxide 17 mmol/L 21-32 Serum or plasma anion gap determination (moles/volume) 10 mmol/L 5-14 Serum or plasma urea nitrogen measurement (mass/volume ) 22 mg/dL 7-18 Serum or plasma creatinine measurement (mass/volume) 1.20 mg/dL 0.60-1.30 Serum or plasma urea nitrogen/creatinine mass ratio 18 NRG Serum or plasma creatinine measurement w ith calculation of estimated glomerular filtration rate 44 NRG Serum or plasma glucose measurement (mass/volume) 86 mg/dL 70-105 Serum or plasma calcium measurement (mass/volume) 9.3 mg/dL 8.5-10.1 Serum or plasma total bilirubin measurement (mass/volu me) 0.4 mg/dL 0.1-1.0 Serum or plasma alkaline phosphatase shalini surement (enzymatic activity/volume) 177 U/L 40-136 Serum or plasma aspartate aminotransfera se measurement (enzymatic activity/volume) 26 U/L 5-34 Serum or plasma alanine aminotransferase measurement (enzymatic activity/volume) 23 U/L 0-55 Serum or plasma protein measurement (mass/volume) 6.2 g/dL 6.4-8.2 Serum or plasma albumin measurement (mass/volume) 3.7 g/dL 3.2-4.5 CALCIUM CORRECTED 9.5 mg/dL 8.5-10.1 Encounters ACCT No. Visit Date/Time Discharge Status Pt. Type Provider Facility Loc./Unit Complaint [id number] 02/11/2019 10:15:00 02/11/2019 23:59: 59 [id number] 11/30/2018 14:30:00 Document Registration [id number] 07/21/2019 08:39:00 019 12:10:00 DIS Outpatient Connor PALM MD [facility] CATH PERSISTENT AF,SEVERE SY MPTOMATIC BRADYCARDIA [id number] 07/12/2019 12:00:00 23:59:59 CLS Preadmit Connor PALM MD [facility] CARD PERSISTENT AF [id number] 04/12/2019 12:18:00 00:01:00 DIS Outpatient Connor PALM MD [facility] CARD PERSISTENT AF [id number] 07/07/2019 08:56:00 09:54:00 DIS Outpatient Connor PALM MD [facility] SDC PERSISTEN AF [id number] 03/30/2019 08:29:00 12:25:00 DIS Outpatient SHELDON MOY MD [facility] CATH ATRIAL FIB [id number] 01/26/2019 11:28:00 23:59:59 CLS Outpatient SHELDON MOY MD [facility] RAD AFIB, CHF, MOREL, HTN, MR , PAF [id number] 01/24/2019 08:21:00 23:59:59 CLS Preadmit [employer] [facility] RAD DYSPNEA,CHF,PAF [id number] 01/20/2019 07:58:00 23:59:59 CLS Preadmit [employer] [facility] RT COUGH,DYSPNEA [id number] 12/26/2018 18:35:00 12:34:00 DIS Inpatient XAVIER SAINZ MD [facility] 4TH CHF,COPD,PNA
== END 2019-07-07 09:54 | disposition home or self-care (01) ==
LOC: SDC 08:56
PROVIDERS: ATTEND Internal Medicine Interventional Cardiology
DX: I48.19 Other persistent atrial fibrillation (principal); I48.0 Paroxysmal atrial fibrillation; I11.0 Hypertensive heart disease with heart failure; I50.9 Heart failure, unspecified; I49.5 Sick sinus syndrome; I34.0 Nonrheumatic mitral (valve) insufficiency; J44.9 Chronic obstructive pulmonary disease, unspecified; Z88.2 Allergy status to sulfonamides; Z91.040 Latex allergy status; Z79.899 Other long term (current) drug therapy; Z79.01 Long term (current) use of anticoagulants; Z82.49 Family history of ischemic heart disease and other diseases of the circulatory system
CPT/HCPCS: 93005